=== PATIENT | female | born 1940 | race Caucasian/White ===

== ENCOUNTER 2020-01-11 09:16 | Outpatient (CLI) | payer MEDICARE, OTHER, SELFPAY ==
--- NOTE | ~2020-01-11 | MR_ITS ---
EXAMINATION: MR lumbar spine wo con DATE: 01/11/2020 10:30 INDICATION: Low back pain. TECHNIQUE: Magnetic resonance imaging (MRI) of the lumbar spine was performed without intravenous con trast. Sequences included sagittal T2-weighted FSE, sagittal T2-weighted FS FSE, sagittal T1-weighted FSE, and axial T2-weighted FSE. COMPARISON: Lumbar spine MRI 04/19/2019, CT 01/11/2020 FINDINGS: There is 11 degrees dextroscoliosis of lumbar spine. There is 7 mm anterolisthesis of L5 on S1. There are changes of posterior fusion procedure at L5-S1 with pedicle screws. There is mild auditor in charge estefany anterior wedging of T11-L1 vertebral bodies. There are Schmorl's nodes at multiple levels. There is mildly decreased disc height at L1-L2 and L3-L4 and moderately decreased disc height at L4-L5 and L5-S1. The distal spinal cord signal intensity is normal. The conus medullaris is at L1-L2. There are cysts in the kidneys measuring up to 3.0 cm on the left. The following disc levels are specifically discussed: L1-L2: The disc is bulging. There is mild bilateral facet joint osteoarthritis. There is mild bilater al neural foraminal stenosis. There is mild central canal stenosis. L2-L3: The disc does not extend beyond the endplate margin. There is moderate bilateral facet joint o steoarthritis. There is mild left neural foraminal stenosis. There is no central canal stenosis. L3-L4: The disc is bulging. There is severe bilateral facet joint osteoarthritis. There is mild bilat eral neural foraminal stenosis. There is mild central canal stenosis. L4-L5: The disc is bulging and has an annular fissure. There is severe bilateral facet joint osteoart hritis. There is mild bilateral neural foraminal stenosis. There is mild central canal stenosis. L5-S1: The disc is bulging and has an annular fissure. There is severe bilateral facet joint osteoart hritis. There is mild bilateral neural foraminal stenosis. There is mild central canal stenosis. IMPRESSION: 1. Moderate lumbar spondylosis, stable from 04/19/2019. 2. Posterior fusion procedure at L5-S1. 3. Lumbar dextroscoliosis. Reviewed, dictated and finalized at location A.
--- NOTE | ~2020-01-11 | CT_ITS ---
EXAMINATION: CT lumbar spine wo con DATE: 01/11/2020 09:58 INDICATION: Low back pain. Left leg numbness. TECHNIQUE: Computed tomography (CT) of the lumbar spine was performed without intravenous contrast. A utomated exposure control and iterative reconstruction technique were employed. The dose-length produ ct was 400.33 mGy-cm. 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 There is a 7 mm stone in the lower pole renal pelvis. No hydronephrosis. There is a 3.1 cm cyst in left kidney. There is 12 degrees dextroscoliosi s of lumbar spine. There are chronic bilateral L5 pars defects. There is 7 mm anterolisthesis of L5 o n S1. There are changes of posterior fusion procedure at L5-S1 with pedicle screws. There are Schmorl 's nodes at L1-L2 and L3-L4. There is mildly decreased disc height at L1-L2 and L3-L4 and moderately decreased disc height at L4-L5 and L5-S1. The following disc levels are specifically discussed: L1-L2: The disc is bulging. There is mild bilateral facet joint osteoarthritis. There is mild bilater al neural foraminal stenosis. There is mild central canal stenosis. L2-L3: The disc is bulging. There is moderate bilateral facet joint osteoarthritis. There is mild lef t neural foraminal stenosis. There is no central canal stenosis. L3-L4: The disc is bulging. There is severe bilateral facet joint osteoarthritis. There is mild right and moderate left neural foraminal stenosis. There is mild central canal stenosis. L4-L5: The disc is bulging. There is severe bilateral facet joint osteoarthritis. There is mild bilat eral neural foraminal stenosis. There is mild central canal stenosis. L5-S1: The disc is bulging. There is severe bilateral facet joint osteoarthritis. There is mild bilat eral neural foraminal stenosis. There is mild central canal stenosis. IMPRESSION: 1. Moderate lumbar spondylosis. 2. Posterior fusion procedure at L5-S1. 3. Lumbar dextroscoliosis. 4. Right kidney stone. Reviewed, dictated and finalized at location A.
== END 2020-01-11 09:17 | disposition home or self-care (01) ==
PROVIDERS: PCP Family Medicine; Visit Provider Orthopaedic Surgery
DX: M47.896 Other spondylosis, lumbar region (principal); Z98.1 Arthrodesis status; N20.0 Calculus of kidney
CPT/HCPCS: 72131; 72148

== ENCOUNTER 2021-01-20 15:07 | Outpatient (CLI) | payer MEDICARE, OTHER, SELFPAY ==
--- NOTE | ~2021-01-20 | CT_ITS ---
EXAMINATION: CT hip LT wo con DATE: 01/20/2021 15:26 INDICATION: Left hip pain. TECHNIQUE: Computed tomography (CT) of the left hip was performed without intravenous contrast. Autom ated exposure control and iterative reconstruction technique were employed. The dose-length product w as 199.05 mGy-cm. COMPARISON: Pelvis and left hip radiograph 01/14/2021 FINDINGS: Bone alignment is normal. No fracture. There is severe left hip osteoarthritis. There is a loose body in the posterior aspect of the hip joint. IMPRESSION: 1. Severe left hip osteoarthritis. 2. Left hip joint loose body. Reviewed, dictated and finalized at location A.
== END 2021-01-20 15:08 | disposition home or self-care (01) ==
LOC: ANHIMG 15:08
PROVIDERS: PCP Family Medicine; Visit Provider Orthopaedic Surgery
DX: M24.052 Loose body in left hip (principal); M16.12 Unilateral primary osteoarthritis, left hip
CPT/HCPCS: 73700

== ENCOUNTER 2021-03-03 07:51 | Outpatient (CLI) | payer MEDICARE, OTHER, SELFPAY ==
--- NOTE | 2021-03-03 09:09 | ECG_ITS ---
Measurements Intervals [place] Rate: 67 P: 58 IN: 174 QRS: -1 QRSD: 86 T: 28 QT: 389 QTc: 413 Interpretive Statements SINUS RHYTHM EARLY PRECORDIAL R/S TRANSITION BORDERLINE ST ABNORMALITY- ANTERIOR LEADS BASELINE ARTIFACT- II, III, AVR, AVF BORDERLINE ECG Electronically Signed On 03-03-2021 9:19:37 CDT by Jeovany Moran D.O.
[2021-03-03 09:58] LABS: Urine Cotinine NEGATIVE
[2021-03-03 10:33] LABS: Hemoglobin A1C 5.6 % (<5.7)
== END 2021-03-03 07:52 | disposition home or self-care (01) ==
LOC: ANHSURGERY 07:55
PROVIDERS: PCP Family Medicine; Visit Provider Orthopaedic Surgery
DX: M16.12 Unilateral primary osteoarthritis, left hip (principal); Z01.812 Encounter for preprocedural laboratory examination; R94.31 Abnormal electrocardiogram [ECG] [EKG]
CPT/HCPCS: 80307; 83036; 86850; 86900; 86901; 87081; 93005

== ENCOUNTER 2021-03-16 01:42 | Day surgery (SDC) | payer MEDICARE, OTHER, SELFPAY ==
[2021-03-03 08:03] VITALS: BMI 24.3
[2021-03-03 09:02] VITALS: BP 167/86; PULSE 68; RESP 16; TEMP 36.9; O2SAT 97
[2021-03-16] VITALS (15 sets, daily range): BP systolic 116–164; BP diastolic 56–80; PULSE 47–76; RESP 10–18; TEMP 36.2–36.6; O2SAT 90–100
--- NOTE | ~2021-03-16 | XR_ITS ---
EXAMINATION: XR surgery orthopedic DATE: 03/16/2021 09:54 INDICATION: Intraoperative evaluation during left full hip arthroplasty TECHNIQUE: A single fluoroscopic spot image the left hip was obtained during procedure performed by Gaye Ross. Radiologist was not present for the imaging or procedure. The amount of fluoroscopy time use d during this procedure was 0.2 minutes. FINDINGS: Intraoperative image during a left normal hip arthroplasty demonstrate placement of an acetabular com ponent which appears in near anatomic alignment on the single image provided. A femoral broach versu s femoral component without the head is in place with the proximal tip centered over the acetabular c omponent. Hemostat is seen extending between the proximal thighs external to the patient. No fracture s in the visualized bones. IMPRESSION: 1. Expected appearance during left total hip arthroplasty. Reviewed, dictated and finalized at location A.
--- NOTE | ~2021-03-16 | XR_ITS ---
XR hip LT min 2V DATE: 03/16/2021 10:52 INDICATION: Postoperative examination, left hip replacement TECHNIQUE: Postoperative portable AP and crosstable lateral views of the left hip COMPARISON: 03/05/2021 left hip FINDINGS: A screw is noted in the left side of the sacrum. Status post left femoral head resection and left total hip arthroplasty. Normal alignment of the acet abular and femoral components. There is expected postoperative mild subcutaneous emphysema in the lef t hip and proximal thigh areas. Osteopenia. IMPRESSION: Status post left total hip arthroplasty Reviewed, dictated and finalized at location B.
[2021-03-16] MEDS: ACETAMINOPHEN 500 MG TABLET 1000 MG PO ×3 (06:47→21:19)
[2021-03-16] MEDS: LACTATED RINGERS 1,000 ML 30 ML IV CONT ×3 (07:00→11:36)
[2021-03-16] MEDS: TRANEXAMIC ACID 1,000MG/ISO100 1,000 MG/100 ML BAG 200 MG IVPB (07:01)
--- NOTE | 2021-03-16 07:01 | WPDHPUPDATE1 ---
History and Physical Update Update Date/Time: 03/16/21 07:01 History and Physical has been reviewed, including an updated exam of the patient. There are NO changes in the patient's condition. Risks, benefits, and alternatives have been discussed and questions answered. Patient agrees to proceed with procedure.
--- NOTE | 2021-03-16 07:02 | WPDANESEPPF ---
Anes - Initial Pre Proc Eval Procedure: Operation Date: 03/16/21 07:30 Proposed Procedures p Total Left Hip Arthroplasty, Anterior Approach - Michele Ross MD Date/Time: 03/16/21 07:02 Surgeon: Michele Ross MD Pre Op Diagnosis: Left Hip osteoarthritis Patient Data Age: 81 Gender: F Height: 1.57 m Weight: 60.9 kg Last Vital Signs Temp 36.6 C 03/16/21 06:20 Pulse 66 03/16/21 06:20 Resp 16 03/16/21 06:20 BP 164/71 H 03/16/21 06:20 Pulse Ox 98 03/16/21 06:20 Allergies Allergy/AdvReac Type Severity Reaction Status Date / Time J CARLOS Inhibitors Allergy Mild Cough Verified 03/16/21 06:29 amlodipine Allergy Mild RASH Verified 03/16/21 06:29 lisinopril Allergy Mild RASH Verified 03/16/21 06:29 losartan Allergy Unknown RASH Verified 03/16/21 06:31 CARDIUM Allergy Mild Cough Uncoded 03/16/21 06:32 DIURETICS Allergy Mild LEG CRAMPS Uncoded 03/16/21 06:31 Home Medications Medication Instructions Recorded Confirmed Type hydrocortisone 1 applic TOPICAL PRN PRN 03/03/21 03/16/21 History nebivolol [Bystolic] 2.5 mg PO QAM 03/03/21 03/16/21 History sennosides [Senokot] 8.6 mg PO HS 03/03/21 03/16/21 History triamcinolone acetonide 1 applic TOPICAL PRN PRN 03/03/21 03/16/21 History rivaroxaban 10 mg tablet 10 mg PO DAILY #14 tablet 03/05/21 03/16/21 Rx ECG: Date of Service: 03/03/21 Procedure(s): CA 12 lead EKG Accession Number(s): [id number] cc: ~ Measurements Intervals [place] Rate: 67 P: 58 DE: 174 QRS: -1 QRSD: 86 T: 28 QT: 389 QTc: 413 Interpretive Statements SINUS RHYTHM EARLY PRECORDIAL R/S TRANSITION BORDERLINE ST ABNORMALITY- ANTERIOR LEADS BASELINE ARTIFACT- II, III, AVR, AVF BORDERLINE ECG Electronically Signed On 03-03-2021 9:19:37 CDT by Jeovany Moran D.O. Dictated By: Jeovany Moran DO 03/03/21 0919 Patient hx anesthesia problems: none Family hx anesthesia problems: none PMFSH Past Medical History Medical History Hernia Osteoarthritis of left hip Pain of left hip Surgical History Surgical History H/O repair of rotator cuff H/O: hysterectomy History of appendectomy History of cholecystectomy History of lumbar surgery History of vitrectomy Family History Family History Mother Hypertension Carcinoma of colon Colon polyp Family history of malignant neoplasm of breast in first degree relative Father Family history of Parkinson's disease, Onset Age: 73 Social History Social History Smoking packs per day: 1 Smoking cigarettes per day: 20.0 Years smoked: 50 Smoking pack-years: 50.00 Smoking status: Former smoker Tobacco type: cigarettes and e-cigarettes/vaping Smoking end date: 08/15/12 Additional smoking assessment comments: CURRENTLY USES E-CIGARETTES W NICOTINE.STATES LAST USED E-CIG WAS 6 WKS AGO Alcohol intake: never Living arrangements: with family Gender identity (if verbalized by the patient): Female Spiritual care concerns: No Anes - Eval Final PreProcedure Day of Procedure 03/16/21 07:02 Patient weight: normal Heart: regular rate and rhythm Lungs: clear to auscultation and normal air movement Airway: Mallampati scale class II Neurological: alert and oriented Last oral intake: >/= 8 hours ASA classification: II Emergent: no Anesthetic plan: proceed Anesthesia type and monitoring: general LMA and ETT Informed Consent: The patient's anesthetic plan and its attendant risks and benefits were discussed
[2021-03-16] MEDS: ceFAZolin 2 GM/D5W 50 ML 2 GM/50 ML BAG IVPB ×3 (07:31→23:23)
[2021-03-16] MEDS: BUPIVACAINE/EPINEPHRINE 0.25% 10 ML VIAL 40 ML INFILTRATE (08:28)
--- NOTE | 2021-03-16 10:32 | W.PM.PROC2 ---
Procedure Note - Detailed Date of Procedure 03/16/21 Pre-op Diagnosis Left Hip osteoarthritis Post-op Diagnosis same Procedure Performed left total hip replacement - anterior approach Surgeon Michele Ross MD Automatic Spreader Operator Verónica Matta Anesthesia general Indications see H&P Description of Procedure The patient was identified, proper side identified, and then taken to the operating room. After a spinal anesthetic was administered, she was then transferred over to the Lind table positioning supine in the usual manner for an anterior hip procedure. Positioning was assessed fluoroscopically after which the left hip and thigh was prepped and draped in the usual sterile fashion. 10 cc of the arthroplasty solution was injected into the subcutaneous tissue over the TFL muscle belly. Longitudinal incision was made over the muscle belly. Subcutaneous tissue was sharply dissected down to the TFL fascia which was incised in line with the fibers the TFL. The TFL was retracted laterally and the rectus femoris medially. The rectus fascia was divided. The branches of the anterior femoral circumflex artery were identified and cauterized allowing for access to the hip capsule. Pericapsular fatty tissue was removed. The capsule was divided in an inverted T-fashion. The neck cut was made one fingerbreadth above the level of the lesser trochanter. Head fragment was removed and the acetabulum cleared of debris. Acetabulum was sequentially reamed under fluoroscopic visualization up to 47 mm. A size 48 G7 cup was inserted under fluoroscopic visualization in approximately 40? of abduction and 15? of anteversion following the patient's anatomy. The trial liner for the 32 head was placed. The femur was then delivered up into the wound with the appropriate releases. The proximal femur was prepared for the thirteen high offset Echo micro plasty stem and a trial reduction was undertaken. Overall alignment was assessed fluoroscopically in the AP and lateral views noting it to be satisfactory. Trial components were removed. The wound was irrigated with pulsatile lavage. The real size 13 echo micro plasty stem was then seated. This construct with a size 32 , minus three head gave excellent restorationist of leg lengths and stability so the real size 32, minus three ceramic head was attached to the neck of the femoral component after it had been cleaned and dried. Hip was again reduced and stability assessed, and it was noted to be stable. After final lavage of the wound, the periarticular tissues were injected with an additional 50 cc of the arthroplasty solution. 1 g of tranexamic acid was left in the wound. The capsule was reapproximated with #2 Vicryl suture, the TFL fascia with 0 looped PDS suture, the subcu with two of strata fix in the deeper layers and two of strata fix subcuticular stitch. Tissue adhesive was used for the skin. Sterile dressing was applied. Ad tolerated the procedure well. He was transferred back to a bed and taken to recovery area in stable condition. There were no known intraoperative complications. Estimated blood loss was 500 cc; 225 cc given back via Cell Saver. She received perioperative antibiotics. Estimated Blood Loss 500 ( 225 mL cell Saver returned) Drains No Packing No Pathology none sent Complications No immediate complications Condition stable Disposition PACU
[2021-03-16] MEDS: fentaNYL CITRATE INJ (*CRX) 100 MCG/2 ML VIAL 25 MCG IV PUSH ×2 (10:54→11:33)
--- NOTE | 2021-03-16 12:48 | ADMGEN ---
This patient, Jazmín Avila, was admitted to 2 Medical Room 241-01. Patient/family oriented to hospital policies and general routines including ID bracelet, bed and alarms, visiting hours, pain management, procedures, bathroom and other care routines, personal items, smoking policy, room service/diet, and visiting hours. Information on how to activate the Rapid Response Team has been discussed. Patient/Family are encouraged to report perceived risks to care and to ask questions if they do not understand what they are told or what they should do.
[2021-03-16] MEDS: SODIUM CHLORIDE 0.9% IV 1,000 ML 125 ML IV CONT ×2 (13:11→21:00)
[2021-03-16] MEDS: oxyCODONE HCL (*CRX) 5 MG TAB IR PO ×2 (14:18→21:24)
[2021-03-16] MEDS: ONDANSETRON INJ 4 MG/2 ML VIAL IV PUSH ×2 (16:30→21:19)
[2021-03-16] MEDS: DOCUSATE SODIUM 100 MG CAPSULE PO (18:14)
[2021-03-16] MEDS: FAMOTIDINE 20 MG TABLET PO (21:18)
[2021-03-16] MEDS: SENNOSIDES 8.6 MG TABLET PO (23:26)
[2021-03-17 02:25] VITALS: BP 126/58; PULSE 83; RESP 16; TEMP 36.6; O2SAT 94
[2021-03-17] MEDS: ONDANSETRON INJ 4 MG/2 ML VIAL IV PUSH ×2 (03:49→06:27)
[2021-03-17] MEDS: KETOROLAC 15 MG/ML VIAL (*BKC) IV PUSH (04:58)
[2021-03-17] MEDS: SODIUM CHLORIDE 0.9% IV 1,000 ML 125 ML IV CONT (06:23)
[2021-03-17 06:25] VITALS: BP 110/58; PULSE 78; RESP 16; TEMP 36.8; O2SAT 95
--- NOTE | 2021-03-17 07:38 | PM.DS ---
DS: Admitting Diagnosis Admitting Diagnosis left hip osteoarthritis DS: Discharge Diagnosis Discharge Diagnosis (1) History of left hip replacement: Code(s): Z96.642 - Presence of left artificial hip joint Status: Resolved Assessment and Plan: plan discharge home later today. DS: Summary Hospital Course Reason for hospitalization: Observation following outpatient procedure Hospital Course: Following the patient's procedure she was admitted to the floor. She did have nausea overnight but it is better today. I suspect that this is primarily from residual anesthetic. Plan on discharging her home today. Status at Discharge Functional status at discharge: uses cane/walker Overall status at discharge: patient is not back to baseline Time Spent with Patient Time attestation: Total time spent providing and/or coordinating discharge services: Exam Const: General: cooperative, no acute distress and alert Nutritional Appearance: other Orientation/consciousness: patient oriented x3 Limitations: no limitations HENMT: Head: normal to inspection Ears: hearing grossly normal bilaterally Face and sinus: face symmetric Mouth: Yes moist mucous membranes Eyes: Alignment and Position: alignment normal and position normal Sclera: sclerae normal Neck: Neck: normal visual inspection and nontender Chest: Chest palpation & inspection: normal inspection of the chest Resp: Effort & Inspection: normal respiratory effort and able to speak in complete sentences GI: Inspection: other Skin: General skin exam: normal color Rashes: no rashes Neuro: General: patient oriented x3 Cognition (Neuro): normal cognition Speech: normal speech Gait exam (Neuro): Other gait observations present Extrem: General: normal to inspection and other Other: Exam of The left hip shows dry dressing. Minimal swelling. Neurovascular status grossly intact left lower extremity. Calves negative. Psych: Appearance: grossly normal Mental Status: mental status grossly normal Discharge Plan Discharge Patient Disposition: Home, Self-Care Discharge Instructions: 3 times daily for 20 minutes each time, reclining in bed with ice packs over the incision and a pillow underneath the calf of the affected leg, not under the knee. Your wound is glued so it is okay to get into the shower and get the wound wet in two days. Be sure to read through all the information that came from a my office and the hospital. Most of the answers you will need can be found that material. Call the office with any questions that you cannot find answers to, or concerns you may have. After the Xarelto is completed, start taking one coated 325 mg aspirin daily and do this for four more weeks. Please call [facility] at as soon as possible to verify follow-up appointment to be seen in 2 weeks. Also, call the office with any orthopedic/surgical related questions prior to follow-up. Be sure to get up and move around several times daily but do not overdo it. Take the arthritis formula Tylenol 650 mg tablet on an 8 hour schedule. A good 8 hour schedule is: 6:00 a.m., 2:00 p.m., 10:00 p.m. you may take the prescribed pain medication along with the Tylenol; it is not to be taken instead of the Tylenol. I would like for you to take the Tylenol on a schedule for 2-3 weeks. You also have a prescription for Celebrex which is to be taken daily for seven days. Once the Xarelto is completed, if you wish to supplement your pain regimen with [id number] anti-inflammatory such as Advil or Aleve, that is fine. Follow the label instructions. Do not take this medicine if you have an allergy to NSAIDs. Patient Instructions: Rivaroxaban (By mouth) Discharge Medications: New oxycodone 5 mg Tablet 5 mg PO Q4H PRN (Reason: Pain Rated 4-6) Qty: 30 RF: 0 celecoxib [Celebrex] 200 mg capsule 200 mg PO DAILY Qty: 7 RF: 0 ondansetron HCl [Zofran] 4 mg
--- NOTE | 2021-03-17 07:41 | WPDANESPN ---
Anes - Prog Note Post-Op Date/Time: 03/17/21 07:41 Cardiovascular status: normal Respiratory status: normal Airway patency: baseline Mental status: baseline Post-Op hydration status: normal Vital Signs: Last Vital Signs Temp 36.8 C 03/17/21 06:25 Pulse 78 03/17/21 06:25 Resp 16 03/17/21 06:25 BP 110/58 L 03/17/21 06:25 Pulse Ox 95 03/17/21 06:25 Pain Score (VAS): 3/10 I/O: Intake & Output 03/16/21 03/16/21 03/17/21 15:59 23:59 07:59 Intake Total 550 1640 1200 Output Total 100 900 Balance 550 1540 300 Post-procedural complaints: nausea and vomiting Patient Feedback: Patient satisfied with anesthetic care.
[2021-03-17] MEDS: ceFAZolin 2 GM/D5W 50 ML 2 GM/50 ML BAG IVPB (08:12)
[2021-03-17 08:14] VITALS: PULSE 78
[2021-03-17] MEDS: NEBIVOLOL HCL 2.5 MG TABLET PO (08:14)
[2021-03-17] MEDS: CELECOXIB 200 MG CAPSULE PO (08:14)
[2021-03-17] MEDS: FAMOTIDINE 20 MG TABLET PO (08:15)
[2021-03-17] MEDS: RIVAROXABAN 10 MG TABLET PO (08:15)
[2021-03-17] MEDS: DOCUSATE SODIUM 100 MG CAPSULE PO (08:16)
== END 2021-03-17 10:10 | disposition home or self-care (01) ==
LOC: ANHSURGERY 06:00 → ANH2MED 12:43
PROVIDERS: PCP Family Medicine; Visit Provider Orthopaedic Surgery
PROC: (CPT 27130; principal; 2021-03-16 07:30)
DX: M16.12 Unilateral primary osteoarthritis, left hip (principal); Z87.891 Personal history of nicotine dependence; Z79.01 Long term (current) use of anticoagulants
CPT/HCPCS: 27130; 73502; 97110; 97116; 97161; 97165; 97530; 97535; A9270; C1713; C1776; J0690; J1100; J1170; J1885; J2405; J2704; J3010; J7030; J7120

== ENCOUNTER 2021-03-30 15:47 | Inpatient (IN) | payer MEDICARE, OTHER, SELFPAY ==
[2021-03-30] VITALS (11 sets, daily range): BP systolic 101–127; BP diastolic 52–90; PULSE 71–80; RESP 12–18; TEMP 36.2–37.3; O2SAT 88–100; BMI 24.0
--- NOTE | ~2021-03-30 | XR_ITS ---
XR hip LT min 2V DATE: 03/30/2021 21:41 INDICATION: Left hip replacement TECHNIQUE: Postoperative portable AP and crosstable lateral views of left hip COMPARISON: 03/16/2021 portable AP and crosstable lateral views of left hip FINDINGS: Status post left hip arthroplasty with normal alignment of the acetabular and femoral compo nents. Surgical soft tissue drain overlies the left hip area. Status post posterior lumbosacral spinal fusion. IMPRESSION: Status post left hip replacement Reviewed, dictated and finalized at location A.
--- NOTE | 2021-03-30 15:50 | ADMGEN ---
This patient, Jazmín Avila, was admitted to Medical Room 253-01. Patient/family oriented to hospital policies and general routines including ID bracelet, bed and alarms, visiting hours, pain management, procedures, bathroom and other care routines, personal items, smoking policy, room service/diet, and visiting hours. Information on how to activate the Rapid Response Team has been discussed. Patient/Family are encouraged to report perceived risks to care and to ask questions if they do not understand what they are told or what they should do.
--- NOTE | 2021-03-30 17:55 | WPDANESEPPF ---
Anes - Initial Pre Proc Eval Procedure: Operation Date: 03/30/21 19:00 Proposed Procedures p Washout Left Hip Possible Head and Poly Exchange - Michele Ross MD Date/Time: 03/30/21 17:55 Surgeon: Michele Ross MD Pre Op Diagnosis: Post/op wound infection left hip Patient Data Age: 81 Gender: F Height: 1.57 m Weight: 59.6 kg Last Vital Signs Temp 36.4 C L 03/30/21 16:19 Pulse 80 03/30/21 16:19 Resp 16 03/30/21 16:19 BP 119/88 03/30/21 16:19 Pulse Ox 100 03/30/21 16:19 Allergies Allergy/AdvReac Type Severity Reaction Status Date / Time J CARLOS Inhibitors Allergy Mild Cough Verified 03/16/21 06:29 Home Medications Medication Instructions Recorded Confirmed Type Bystolic 2.5 mg PO QAM 03/03/21 03/30/21 History hydrocortisone 1 applic TOPICAL PRN PRN 03/03/21 03/30/21 History sennosides [Senokot] 8.6 mg PO HS 03/03/21 03/30/21 History triamcinolone acetonide 1 applic TOPICAL PRN PRN 03/03/21 03/30/21 History ondansetron HCl [Zofran] 4 mg PO Q6H PRN #10 tablet 03/17/21 03/30/21 Rx oxycodone 5 mg tablet 5 mg PO Q6H PRN #30 tablet 03/17/21 03/30/21 Rx acetaminophen [Tylenol Arthritis] 650 mg PO Q8H PRN 03/30/21 03/30/21 History aspirin 325 mg PO DAILY 03/30/21 03/30/21 History Patient hx anesthesia problems: post op nausea/vomiting Family hx anesthesia problems: none PMFSH Past Medical History Medical History Essential (primary) hypertension Hernia Pain of left hip Postoperative wound infection Surgical History Surgical History H/O repair of rotator cuff H/O: hysterectomy History of appendectomy History of cholecystectomy History of left hip replacement March 16, 2021 anterior approach History of lumbar surgery History of vitrectomy Family History Family History Mother Hypertension Carcinoma of colon Colon polyp Family history of malignant neoplasm of breast in first degree relative Father Family history of Parkinson's disease, Onset Age: 73 Social History Social History Smoking packs per day: 1 Smoking cigarettes per day: 20.0 Years smoked: 50 Smoking pack-years: 50.00 Smoking status: Former smoker Alcohol intake: never Substance use: never Spiritual care concerns: No Anes - Eval Final PreProcedure Day of Procedure 03/30/21 17:55 Patient weight: normal Heart: regular rate and rhythm Lungs: decreased breath sounds Airway: Mallampati scale class II Neurological: alert and oriented Last oral intake: >/= 8 hours ASA classification: III Emergent: no Anesthetic plan: proceed Anesthesia type and monitoring: general LMA and standard monitoring Informed Consent: The patient's anesthetic plan and its attendant risks and benefits were discussed with the patient/family/POA. Questions were solicited and answers provided to the satisfaction of the patient/family/POA.
[2021-03-30] MEDS: LACTATED RINGERS 1,000 ML 30 ML IV CONT (18:03)
--- NOTE | 2021-03-30 19:31 | WPDHPUPDATE1 ---
History and Physical Update Update Date/Time: 03/30/21 19:31 History and Physical has been reviewed, including an updated exam of the patient. There are NO changes in the patient's condition. Risks, benefits, and alternatives have been discussed and questions answered. Patient agrees to proceed with procedure.
[2021-03-30 19:54] LABS: Hematocrit 33.6 % (37.0-47.0); Hemoglobin 10.2 g/dL (12.0-15.0); Mean Corpuscular HGB Conc 30.4 g/dl (32-36); Mean Corpuscular Hemoglobin 29.8 pg (26-34); Mean Corpuscular Volume 98.2 fl (80-100); Platelet Count Result 326 k/mm3 (150-375); Red Blood Count 3.42 M/mm3 (4.2-5.4); Red Cell Distribution Width 13.2 % (11.5-14.5); White Blood Count 11.5 K/mm3 (4.5-10.0)
[2021-03-30 20:03] LABS: Anion Gap 7 mmol/L (8-16); Blood Urea Nitrogen 14 mg/dL (7-17); Calcium 8.9 mg/dL (8.4-10.2); Carbon Dioxide 27 mmol/L (22-30); Chloride 104 mmol/L (98-107); Estimated CRCL calculation 39 ml/min; Estimated Glomerular Filt Rate > 60; Glucose 108 mg/dL (65-110); Potassium 3.9 mmol/L (3.4-5.0); Sodium 138 mmol/L (137-145)
[2021-03-30] MEDS: ceFAZolin SODIUM 1 GM VIAL 2 GM IV PUSH (20:18)
--- NOTE | 2021-03-30 21:43 | W.PM.PROC2 ---
Procedure Note - Detailed Date of Procedure 03/30/21 Pre-op Diagnosis Post/op wound infection left hip Post-op Diagnosis same ( superficial postop wound infection left hip) Procedure Performed irrigation and debridement left hip superficial wound infection Surgeon Michele Ross MD Inspector Final Assembly Electrical Verónica Mcfarland Anesthesia general Indications see H&P Description of Procedure The patient was identified and proper side identified. She was taken to the operating room and after general anesthetic induction and intubation, transferred to the Hamilton table positioned supine taking care to properly pad her torso and extremities. From the small dehisced portion of the wound stat Gram stain and routine cell count cultures were sent to the lab. Left hip and thigh was prepped and draped in usual sterile fashion. The original scar was used to open up the wound. The Stratafix suture was removed. The subcutaneous 0 looped PDS was also removed. The wound was probed and noted not to communicate with the deeper tissues. The TFL fascia repair was hernandez and sealed over. Devitalized tissue was removed from the subcutaneous space along with gentle irrigation of 3 L. the skin edges were freshened up. The 8th inch drain was left deep in the wound taking care not to entrap it during the closure. The subcutaneous tissue was reapproximated with a looped PDS. Skin reapproximated with 3-0 Monocryl and then interrupted 3-0 nylon sutures. After the washout there is much less erythema surrounding the wound. The drain was connected to the collection device and a sterile dressing was applied. Estimated blood loss 200 mL. She was awakened, extubated, transferred to a bed and taken to recovery in stable condition. There were no known intraoperative complications. She received perioperative antibiotics after the cultures were obtained. Estimated Blood Loss -200.0 Drains Yes ( 8Th inch Hemovac) Packing No Pathology other ( microbiology Gram stain and culture sent) Complications No immediate complications Condition stable Disposition PACU
[2021-03-30 22:19] LABS: Hematocrit 33.5 % (37.0-47.0)
[2021-03-30] MEDS: SODIUM CHLORIDE 0.9% IV 1,000 ML 125 ML IV CONT (22:50)
[2021-03-31] VITALS (9 sets, daily range): BP systolic 100–113; BP diastolic 32–62; PULSE 70–83; RESP 12–21; TEMP 36.1–36.9; O2SAT 96–100
--- NOTE | 2021-03-31 00:29 | PM.IMCN ---
Assessment and Plan Additional Plan Left hip postoperative wound infection: s/p debridment and irrigation 03/31/2021. on vancomycin and ancef. ID has been consulted. cultures to folow HTN: on bystolic at home. will continue same. postoperative anemai: stable counts. continue to monitor. Chronic back pain with hx of back surgery: home medication DVT proph: per primary Full code thank you for the consult. will follow HPI Data of Consult Consult date: 03/31/21 Requesting Physician: Michele Ross MD Primary Care Provider: Eric Fowler MD Consult Narrative Narrative: Jazmín Avila is a 81 year old female who had left hip replacement 2 week sago presents to the office yeserday with drainagef rom left hip for the past few days and was admitted under orthopedics for wash out. she udnerwent irrigation and debridement of left hip superficial wound infection.se is placed on antibotics. cultrures has been sent from the surgeical site. the wound probed was not noted to communicated with depper tissues. hospitalist team consulted for medical management. she currently deneis any issues. no fever, chills. sob, chest pain. pain is controlled. Review of Systems Review of Systems: - CONSTITUTIONAL: Denies weight loss, fever and chills. - HEENT: Denies changes in vision and hearing - RESPIRATORY: Denies SOB and cough. - CV: Denies palpitations and CP. - GI: Denies abdominal pain, nausea, vomiting and diarrhea. - : Denies dysuria and urinary frequency. - MSK: Denies myalgia and reports left hip pain - SKIN: Denies rash and pruritus. - NEUROLOGICAL: Denies headache and syncope. - PSYCHIATRIC: Denies recent changes in mood. Denies anxiety and depression. All systems reviewed & are unremarkable except as noted in HPI and below Constitutional: Constitutional: Reports fatigue and Reports weakness Neurologic: Reports weakness Endocrine: Endocrine: Reports fatigue PMFSH Past Medical History Medical History Essential (primary) hypertension Hernia Pain of left hip Postoperative wound infection Surgical History Surgical History H/O repair of rotator cuff H/O: hysterectomy History of appendectomy History of cholecystectomy History of left hip replacement March 16, 2021 anterior approach History of lumbar surgery History of vitrectomy Family History Family History Mother Hypertension Carcinoma of colon Colon polyp Family history of malignant neoplasm of breast in first degree relative Father Family history of Parkinson's disease, Onset Age: 73 Social History Social History Smoking packs per day: 1 Smoking cigarettes per day: 20.0 Years smoked: 50 Smoking pack-years: 50.00 Smoking status: Former smoker Alcohol intake: never Substance use: never Spiritual care concerns: No Meds Home Medications and Allergies Home Medications Medication Instructions Recorded Confirmed Type Bystolic 2.5 mg PO QAM 03/03/21 03/30/21 History hydrocortisone 1 applic TOPICAL PRN PRN 03/03/21 03/30/21 History sennosides [Senokot] 8.6 mg PO HS 03/03/21 03/30/21 History triamcinolone acetonide 1 applic TOPICAL PRN PRN 03/03/21 03/30/21 History ondansetron HCl [Zofran] 4 mg PO Q6H PRN #10 tablet 03/17/21 03/30/21 Rx oxycodone 5 mg tablet 5 mg PO Q6H PRN #30 tablet 03/17/21 03/30/21 Rx acetaminophen [Tylenol Arthritis] 650 mg PO Q8H PRN 03/30/21 03/30/21 History aspirin 325 mg PO DAILY 03/30/21 03/30/21 History Allergies Allergy/AdvReac Type Severity Reaction Status Date / Time J CARLOS Inhibitors Allergy Mild Cough Verified 03/16/21 06:29 Vital Signs Vital Signs - 24 hr 03/30/21 16:19 03/30/21 17:45 03/30/21 21:26 Temperature 97.5 F L 98.4 F 99.2 F Pulse Rat
[2021-03-31] MEDS: ceFAZolin 2 GM/D5W 50 ML 2 GM/50 ML BAG IVPB ×3 (04:06→21:33)
[2021-03-31 05:44] LABS: Basophils Percent Auto 0.2 % (0.2-1.2); Hematocrit 30.5 % (37.0-47.0); Hemoglobin 9.1 g/dL (12.0-15.0); Immature Granulocyte Absolute 0.05 K/mm3 (0.00-0.031); Immature Granulocyte Percent A 0.6 % (0-0.5); Lymphocytes Absolute Auto 0.73 K/mm3 (0.9-3.2); Lymphocytes Percent Auto 8.8 % (18.3-44.2); Mean Corpuscular HGB Conc 29.8 g/dl (32-36); Mean Corpuscular Hemoglobin 28.9 pg (26-34); Mean Corpuscular Volume 96.8 fl (80-100); Mean Platelet Volume 9.4 fl (7.4-10.4); Monocytes Absolute Auto 0.3 K/mm3 (0.1-0.6); Monocytes Percent Auto 3.2 % (2.6-8.5); Neutrophils Absolute Auto 7.3 K/mm3 (1.3-6.7); Neutrophils Percent Auto 87.2 % (45.5-73.1); Platelet Count Result 346 k/mm3 (150-375); Red Blood Count 3.15 M/mm3 (4.2-5.4); White Blood Count 8.3 K/mm3 (4.5-10.0)
[2021-03-31 06:05] LABS: Anion Gap 6 mmol/L (8-16); Blood Urea Nitrogen 13 mg/dL (7-17); Calcium 8.2 mg/dL (8.4-10.2); Carbon Dioxide 26 mmol/L (22-30); Chloride 103 mmol/L (98-107); Estimated CRCL calculation 50 ml/min; Estimated Glomerular Filt Rate > 60; Glucose 137 mg/dL (65-110); Potassium 4.1 mmol/L (3.4-5.0); Sodium 135 mmol/L (137-145)
[2021-03-31 06:38] LABS: Anisocytosis 2+ (NORMAL); Hypochromasia 1+ (NORMAL); Microcytosis 1+ (NORMAL); Platelet Estimate Adequate (Adequate)
--- NOTE | 2021-03-31 08:25 | P.PNAN_ITS ---
Anes - Prog Note Post-Op Date/Time: 03/31/21 08:25 Cardiovascular status: normal Respiratory status: normal Airway patency: baseline Mental status: baseline Post-Op hydration status: normal Vital Signs: Last Vital Signs Temp 36.2 C L 03/31/21 04:11 Pulse 70 03/31/21 04:11 Resp 21 H 03/31/21 04:11 BP 101/53 L 03/31/21 04:11 Pulse Ox 100 03/31/21 04:11 Pain Score (VAS): 0 I/O: Intake & Output 03/30/21 03/31/21 03/31/21 23:59 07:59 15:59 Intake Total 100 1560 Output Total 250 650 Balance -150 910 Laboratory Tests 03/31/21 05:06 03/31/21 05:06 03/30/21 03/30/21 03/30/21 19:47 19:47 22:02 WBC 11.5 H RBC 3.42 L Hgb 10.2 L 10.0 L Hct 33.6 L 33.5 L MCV 98.2 MCH 29.8 MCHC 30.4 L RDW 13.2 Plt Count 326 MPV 9.0 Immature Gran % (Auto) Neut % (Auto) Lymph % (Auto) [place] % (Auto) Eos % (Auto) Baso % (Auto) Lymph # (Auto) [place] # (Auto) Eos # (Auto) Baso # (Auto) Abs Immat Gran (auto) Absolute Neuts (auto) Absolute Nucleated RBC Nucleated RBC % Platelet Estimate Hypochromasia Anisocytosis Microcytosis Sodium 138 Potassium 3.9 Chloride 104 Carbon Dioxide 27 Anion Gap 7 L BUN 14 Creatinine 0.80 Estim Creat Clear Calc 39 Estimated GFR > 60 Glucose 108 Calcium 8.9 03/31/21 03/31/21 05:06 05:06 WBC 8.3 RBC 3.15 L Hgb 9.1 L Hct 30.5 L MCV 96.8 MCH 28.9 MCHC 29.8 L RDW 13.0 Plt Count 346 MPV 9.4 Immature Gran % (Auto) 0.6 H Neut % (Auto) 87.2 H Lymph % (Auto) 8.8 L [place] % (Auto) 3.2 Eos % (Auto) 0.0 Baso % (Auto) 0.2 Lymph # (Auto) 0.73 L [place] # (Auto) 0.3 Eos # (Auto) 0.0 Baso # (Auto) 0.0 Abs Immat Gran (auto) 0.05 H Absolute Neuts (auto) 7.3 H Absolute Nucleated RBC 0.0 Nucleated RBC % 0.0 Platelet Estimate Adequate Hypochromasia 1+ Anisocytosis 2+ Microcytosis 1+ Sodium 135 L Potassium 4.1 Chloride 103 Carbon Dioxide 26 Anion Gap 6 L BUN 13 Creatinine 0.60 L Estim Creat Clear Calc 50 Estimated GFR > 60 Glucose 137 H Calcium 8.2 L Post-procedural complaints: none Patient Feedback: Patient satisfied with anesthetic care.
--- NOTE | 2021-03-31 09:17 | PM.IMPN ---
Progress Note: A&P Assessment and Plan (1) Postoperative wound infection: Code(s): T81.49XA - Infection following a procedure, other surgical site, initial encounter Status: Acute Assessment and Plan: Several days of hip wound drainage following left total hip replacement on 03/16/21. She is now s/p irrigation debridement of left hip superficial wound infection performed by Dr. Ross on 03/30/2021 Continue with IV vancomycin and cefazolin. Intraoperative cultures obtained. Will await results and tailor antibiotics accordingly Blood cultures obtained today. Appreciate infectious disease recommendations Supportive care. Analgesics available as needed. Planning for swing bed placement. Care coordination following. She remains afebrile, no leukocytosis. (2) History of left hip replacement: Code(s): Z96.642 - Presence of left artificial hip joint Status: Resolved Assessment and Plan: Performed on 03/16/2021. See above. (3) Essential (primary) hypertension: Code(s): I10 - Essential (primary) hypertension Status: Acute Assessment and Plan: Blood pressure reviewed and has been well controlled. Last BP 112/32. Continue nebivolol Monitor BP trends Additional Plan Thank you for allowing me to participate in this patient's care. Will follow along. Please call if any questions arise. Subjective Date/time seen: 03/31/21 09:17 Interval history: Date of service: 03/31/2021 Jazmín Avila is an 81-year-old female with a history of hypertension and osteoarthritis who underwent left hip replacement on 03/16/2021 and subsequently developed postoperative wound infection now s/p irrigation/ debridement on 03/30/[address] Ross. she is feeling very well today. She tolerated the procedure well. She is no longer having any hip pain. She does describe a soreness in the left-sided hip and pelvis that extends down to the mid thigh that she rates as 2/10. She notes already significant improvement in her left leg swelling. She denies nausea or vomiting. No fevers or chills. She was able to tolerate her breakfast this morning. She is passing flatus and feels that she needs to have a bowel movement soon. She is urinating without difficulty and denies any urinary symptoms. Denies shortness breath, cough, chest pain, palpitations, dizziness, or lightheadedness. She has been up and moving with therapy and tolerating well. Review of Systems Review of Systems: All systems reviewed & are unremarkable except as noted in HPI and below Exam Narrative: Ms. Avila is a well-nourished, well-appearing 81-year-old female who is sitting up at the bedside. She appears comfortable and is in NARD. Neuro: awake, alert and oriented x4, speech clear, no focal neuro deficits noted HEENMT: normocephalic, atraumatic, EOMI, sclerae anicteric, moist oral mucosa Neck: supple, no lymphadenopathy Respiratory: clear to auscultation bilaterally, nonlabored breathing Cardio: regular rate, regular rhythm with S1-S2 Abdomen: nondistended, normoactive bowel sounds, soft, nontender to palpation Extremities: left hip slightly tender to palpation, wound vac in place draining meera fluid, left knee and calf with trace edema. Neurovascularly intact. Able to wiggle toes bilaterally. DP pulses 2+ bilaterally Skin: no rashes or lesions, warm and dry Psych: appropriate mood and affect, judgment and insight intact Objective Data Vital Signs Vital Signs: Vital Signs - 24 hr 03/30/21 16:19 03/30/21 17:45 03/30/21 21:26 Temperature 97.5 F L 98.4 F 99.2 F Pulse Rate 80 79 77 Respiratory Rate 16 16 12 Blood Pressure 119/88 122/60 101/90 Pulse Oximetry 100 99 100 03/30/21 21:40 03/30/21 21:50 03/30/21 21:55 Temperature Pulse Rate 76 73 Respiratory Rate 12 16 Blood Pressure 127/59 L 125/63 Pulse Oximetry 100 88 L 98 03/30/21 22:10 03/30/21 22:25 03/30/21 22:26 Temperature 98
[2021-03-31] MEDS: NEBIVOLOL HCL 2.5 MG TABLET PO (09:27)
[2021-03-31] MEDS: DOCUSATE SODIUM 100 MG CAPSULE PO (09:27)
[2021-03-31] MEDS: FAMOTIDINE 20 MG TABLET PO ×2 (09:27→21:32)
--- NOTE | 2021-03-31 12:06 | WPDINFPN2 ---
Progress Note: A&P Assessment and Plan (1) Postoperative wound infection: Code(s): T81.49XA - Infection following a procedure, other surgical site, initial encounter Status: Acute Assessment and Plan: Superficial SSI REC Vanc and Ancef, adjust to single agent once culture available, total antibiotic through 04/13/31 Subjective Date/time seen: 03/31/21 12:06 Objective Data Vital Signs Vital Signs: Vital Signs - 24 hr 03/30/21 16:19 03/30/21 17:45 03/30/21 21:26 Temperature 36.4 C L 36.9 C 37.3 C Pulse Rate 80 79 77 Respiratory Rate 16 16 12 Blood Pressure 119/88 122/60 101/90 Pulse Oximetry 100 99 100 03/30/21 21:40 03/30/21 21:50 03/30/21 21:55 Temperature Pulse Rate 76 73 Respiratory Rate 12 16 Blood Pressure 127/59 L 125/63 Pulse Oximetry 100 88 L 98 03/30/21 22:10 03/30/21 22:25 03/30/21 22:26 Temperature 36.8 C 36.2 C L Pulse Rate 71 71 73 Respiratory Rate 14 16 18 Blood Pressure 123/67 125/67 110/52 L Pulse Oximetry 98 98 96 03/30/21 22:41 03/30/21 23:11 03/31/21 00:11 Temperature 36.4 C 36.2 C L 36.2 C L Pulse Rate 72 73 70 Respiratory Rate 18 18 20 Blood Pressure 105/54 L 110/55 L 113/62 Pulse Oximetry 96 95 98 03/31/21 04:11 03/31/21 09:15 03/31/21 09:27 Temperature 36.2 C L 36.9 C Pulse Rate 70 83 70 Respiratory Rate 21 H 12 Blood Pressure 101/53 L 113/60 Pulse Oximetry 100 96 Intake/Output Intake/Output: Intake & Output 03/28/21 03/29/21 03/30/21 03/31/21 23:59 23:59 23:59 23:59 Intake Total 100 1800 Output Total 250 650 Balance -150 1150 Meds/Results Medications: Active Medications Generic Name Dose Route Start Last Admin Trade Name Freq PRN Reason Stop Dose Admin Acetaminophen 650 mg 03/30/21 22:26 Acetaminophen 325 Mg Tablet PO Q8H PRN Pain Al Hydrox/Mg Hydrox/Simethicone 30 ml 03/30/21 22:26 Mag Hydrox/Al Hydrox/Simeth 30 Ml Udc PO Q6H PRN Indigestion Docusate Sodium 100 mg 03/31/21 09:00 03/31/21 09:27 Docusate Sodium 100 Mg Capsule PO 100 mg BID [facility] Administration Enoxaparin Sodium 40 mg 03/31/21 18:00 Enoxaparin 40 Mg/0.4 Ml Syringe SUB-Q QPM [facility] Famotidine 20 mg 03/31/21 09:00 03/31/21 09:27 Famotidine 20 Mg Tablet PO 20 mg Q12HR [facility] Administration Hydrocortisone 1 applic 03/30/21 22:36 Hydrocortisone 2.5% Cream 30 Gm Tube TOPICAL PRN PRN allergic reaction Hydroxyzine HCl 50 mg 03/30/21 22:26 Hydroxyzine Hcl 25 Mg Tablet PO Q4H PRN Itching Cefazolin Sodium 2 gm in 50 mls @ 100 mls/hr 03/31/21 04:00 03/31/21 04:40 Ancef 2 Gm/D5w 50 Ml IVPB 03/31/21 20:29 Infused Q8H [facility] Infusion Vancomycin HCl 1,000 mg in 250 mls @ 250 mls/hr 03/31/21 23:00 Vancomycin 1,000 Mg/D5w 250 Ml IVPB Q24H [facility] Magnesium Hydroxide 30 ml 03/30/21 22:26 Magnesium Hydroxide Susp 30 Ml Udc PO BID PRN Constipation Naloxone HCl 0.1 mg 03/30/21 22:26 Naloxone Hcl 0.4 Mg/Ml Vial IV PUSH Q2M PRN Opiate Reversal Nebivolol 2.5 mg 03/31/21 09:00 03/31/21 09:27 Nebivolol Hcl 2.5 Mg Tablet PO 2.5 mg QAM [facility] Administration Oxycodone HCl 5 mg 03/30/21 22:26 Oxycodone Hcl (*Crx) 5 Mg Tab Ir PO Q6H PRN Pain Rated 7-10 Senna 8.6 mg 03/31/21 21:00 Sennosides 8.6 Mg Tablet PO HS [facility] Triamcinolone Acetonide 1 applic 03/30/21 22:26 Triamcinolone Acet 0.1% Oint 15 Gm Tube TOPICAL PRN PRN Rash Radiology Results: ITS Impressions Hip X-Ray 03/30/21 21:54 IMPRESSION: Status post left hip replacement Labs Labs: Laboratory Results - last 24 hr 03/30/21 03/30/21 03/30/21 19:47 19:47 22:02 WBC 11.5 H RBC 3.42 L Hgb 10.2 L 10.0 L Hct 33.6 L 33.5 L MCV 98.2 MCH 29.8 MCHC 30.4 L RDW 13.2 Plt Count 326 MPV 9.0 Immature Gran % (Auto) Neut % (Auto) Lymph % (Auto) [place] % (Auto) Eos
--- NOTE | 2021-03-31 13:44 | PM.PNORT ---
Progress Note: A&P Assessment and Plan (1) Postoperative wound infection: Code(s): T81.49XA - Infection following a procedure, other surgical site, initial encounter Status: Acute Assessment and Plan: Awaiting the bacteria identification as well as sensitivities. Appreciate Dr. Oneill's input. Also appreciate hospitalist service assistance. Working on swing bed placement, hopefully ready by the end of the week. (2) History of left hip replacement: Code(s): Z96.642 - Presence of left artificial hip joint Status: Resolved Additional Plan Continue postoperative rehab. Overall doing well. Subjective Subjective Date/Time Seen: 03/31/21 13:44 Post Op day: 1 ( ) Principal diagnosis: Washout left hip superficial wound infection Interval history: 81-year-old female postop day one washout right hip superficial wound infection. She says she is having no pain in her left hip. She also feels like her appetite has improved dramatically overnight and her nausea is gone as well. Review of Systems Constitutional: Constitutional: Reports no additional constitutional complaints Eyes: Eyes: Reports no additional eye complaints ENT: Reports system reviewed and no additional complaints, except as documented Cardiovascular: Cardiovascular: Denies chest pain and Denies lightheadedness Respiratory: Respiratory: Reports no additional respiratory complaints Gastrointestinal: Gastrointestinal: Reports no additional gastrointestinal complaints Musculoskeletal: Musculoskeletal: Reports as per HPI Neurologic: Reports system reviewed and no additional complaints, except as documented Hematologic/Lymphatic: Hematologic/Lymphatic: Reports as per HPI Exam Const: General: cooperative, alert and awake Nutritional Appearance: well nourished ( BMI 24.0) Orientation/consciousness: oriented to person, oriented to place and oriented to time HENMT: Head: normal to inspection Mouth: Yes other ( Wearing a mask.) Teeth and gingiva: fair dentition Neck: Neck: normal visual inspection Chest: Chest palpation & inspection: normal inspection of the chest and No Pacemaker present Resp: Effort & Inspection: normal respiratory effort and able to speak in complete sentences GI: Inspection: normal to inspection Skin: General skin exam: normal color Neuro: General: oriented to person, oriented to place and oriented to time Cognition (Neuro): normal cognition Speech: normal speech Extrem: Other: Left hip wound dressing has no perceivable drainage. Still some surrounding erythema particularly proximally and laterally along the incision. Serous drainage in the drain but no significant accumulation. Neurovascular status left lower extremity grossly intact. Psych: Appearance: grossly normal Mental Status: mental status grossly normal Objective Data Vital Signs Vital Signs: Vital Signs - 24 hr 03/30/21 16:19 03/30/21 17:45 03/30/21 21:26 Temperature 97.5 F L 98.4 F 99.2 F Pulse Rate 80 79 77 Respiratory Rate 16 16 12 Blood Pressure 119/88 122/60 101/90 Pulse Oximetry 100 99 100 03/30/21 21:40 03/30/21 21:50 03/30/21 21:55 Temperature Pulse Rate 76 73 Respiratory Rate 12 16 Blood Pressure 127/59 L 125/63 Pulse Oximetry 100 88 L 98 03/30/21 22:10 03/30/21 22:25 03/30/21 22:26 Temperature 98.3 F 97.1 F L Pulse Rate 71 71 73 Respiratory Rate 14 16 18 Blood Pressure 123/67 125/67 110/52 L Pulse Oximetry 98 98 96 03/30/21 22:41 03/30/21 23:11 03/31/21 00:11 Temperature 97.6 F 97.1 F L 97.2 F L Pulse Rate 72 73 70 Respiratory Rate 18 18 20 Blood Pressure 105/54 L 110/55 L 113/62 Pulse Oximetry 96 95 98 03/31/21 04:11 03/31/21 09:15 03/31/21 09:27 Temperature 97.2 F L 98.4 F Pulse Rate 70 83 70 Respiratory Rate 21 H 12 Blood Pressure 101/53 L 113/60 Pulse Oximetry 100 96 03/31/21 12:32 Temperature 98.3 F Pulse Rate 74 Respiratory Rate Blood Pressure 112/32 L Puls
[2021-03-31] MEDS: ENOXAPARIN 40 MG/0.4 ML SYRINGE SUB-Q (17:19)
[2021-03-31] MEDS: SENNOSIDES 8.6 MG TABLET PO (21:32)
[2021-04-01 04:58] VITALS: BP 125/61; PULSE 80; RESP 18; TEMP 36.4; O2SAT 99
[2021-04-01 06:25] LABS: Hematocrit 29.7 % (37.0-47.0); Hemoglobin 8.7 g/dL (12.0-15.0); Mean Corpuscular HGB Conc 29.3 g/dl (32-36); Mean Corpuscular Hemoglobin 29.4 pg (26-34); Mean Corpuscular Volume 100.3 fl (80-100); Mean Platelet Volume 9.8 fl (7.4-10.4); Platelet Count Result 350 k/mm3 (150-375); Red Blood Count 2.96 M/mm3 (4.2-5.4); Red Cell Distribution Width 13.2 % (11.5-14.5); White Blood Count 6.6 K/mm3 (4.5-10.0)
[2021-04-01 06:37] LABS: Anion Gap 5 mmol/L (8-16); Blood Urea Nitrogen 16 mg/dL (7-17); Calcium 8.2 mg/dL (8.4-10.2); Carbon Dioxide 26 mmol/L (22-30); Chloride 106 mmol/L (98-107); Estimated CRCL calculation 44 ml/min; Estimated Glomerular Filt Rate > 60; Glucose 89 mg/dL (65-110); Potassium 3.6 mmol/L (3.4-5.0); Sodium 137 mmol/L (137-145)
--- NOTE | 2021-04-01 09:09 | PM.PNORT ---
Progress Note: A&P Assessment and Plan (1) Postoperative wound infection: Code(s): T81.49XA - Infection following a procedure, other surgical site, initial encounter Status: Acute (2) History of left hip replacement: Code(s): Z96.642 - Presence of left artificial hip joint Status: Resolved Assessment and Plan: 81-year-old female postop day two washout left hip wound superficial infection. Initial culture results have come back Staph aureus. Waiting for the final ID and sensitivities. Also awaiting final discharge plans with her she is going to be able to get her antibiotics at home with home health or have to go to a swing bed or something in between. Likely be able to put a Mepilex dressing on the wound on Tuesday and then change it and five days. This will allow her to be able to get into the shower. Going to discontinue her Lovenox after tonight so that when she leaves the hospital on Tuesday she can have her dental extraction. Plan will be to go on Xarelto 10 mg daily for two weeks after that followed by four weeks of aspirin. She is really wanting to go home however I did explain to her that we need to do what is in her best interest to eradicate this. The risk for recurrent infection of not only the hip area or even a deep infection at the implant but also hematogenous seeding of her back hardware. She did have postoperative wound infection with that procedure. Subjective Subjective Date/Time Seen: 04/01/21 09:09 Post Op day: 2 Principal diagnosis: Status post washout left hip superficial wound infection Interval history: This document created with [id number] technology and is subject to nursing project coordinator irregularities. 81-year-old female postop day two left hip washout for superficial wound infection. Doing better. Having virtually no discomfort in her hip at this point. Initial culture results are Staph aureus. Sensitivities pending. Review of Systems Constitutional: Constitutional: Denies chills Eyes: Eyes: Reports no additional eye complaints ENT: Reports system reviewed and no additional complaints, except as documented Cardiovascular: Cardiovascular: Denies chest pain Respiratory: Respiratory: Reports no additional respiratory complaints Gastrointestinal: Gastrointestinal: Denies abdominal pain Exam Const: General: cooperative, no acute distress and alert Nutritional Appearance: other Orientation/consciousness: patient oriented x3 Limitations: no limitations HENMT: Head: normal to inspection Ears: hearing grossly normal bilaterally Face and sinus: face symmetric Mouth: Yes moist mucous membranes Teeth and gingiva: fair dentition Eyes: Alignment and Position: alignment normal and position normal Sclera: sclerae normal Neck: Neck: normal visual inspection and nontender Chest: Chest palpation & inspection: normal inspection of the chest Resp: Effort & Inspection: normal respiratory effort and able to speak in complete sentences GI: Inspection: other ( Nondistended, nontender) Skin: General skin exam: normal color Rashes: no rashes Neuro: General: patient oriented x3 Cognition (Neuro): normal cognition Speech: normal speech Gait exam (Neuro): Other gait observations present ( uses walker well) Extrem: General: normal to inspection and other Other: Exam of her left hip wound shows that the erythema is virtually gone. Wound edges well apposed and dry. Minimal serous drainage coming from the drain which was removed without difficulty. Neurovascular status grossly intact left lower extremity. Left hip movement causes no discomfort. Psych: Appearance: grossly normal Mental Status: mental status grossly normal Objective Data Vital Signs Vital Signs: Vital Signs - 24 hr 03/31/21 09:15 03/31/21 09:27 03/31/21 12:32 Temperature 98.4 F 98.3 F Pulse Rate 83 70 74 Respiratory Rate 12 12 Blood Pressure 113/60 112/32 L Pulse Oximetry 96 98 03/31/21
[2021-04-01 09:16] VITALS: PULSE 80
[2021-04-01] MEDS: NEBIVOLOL HCL 2.5 MG TABLET PO (09:16)
[2021-04-01] MEDS: FAMOTIDINE 20 MG TABLET PO ×2 (09:16→19:58)
--- NOTE | 2021-04-01 13:16 | PM.IMPN ---
Progress Note: A&P Assessment and Plan (1) Postoperative wound infection: Code(s): T81.49XA - Infection following a procedure, other surgical site, initial encounter Status: Acute Assessment and Plan: Presented with several days of hip wound drainage following left total hip replacement on 03/16/21. She is now s/p irrigation and debridement of left hip superficial wound infection performed by Dr. Ross on 03/30/2021 Continue with IV vancomycin Intraoperative cultures obtained. Initial report with heavy growth of Staphylococcus aureus. Susceptibility report pending. Cefazolin discontinued today Blood cultures pending. Preliminary results with no growth to date Appreciate infectious disease consultation Supportive care. Analgesics available as needed. Planning for swing bed placement with hopeful discharge on 04/03. Care coordination following. She remains afebrile, no leukocytosis. PICC line ordered today (2) History of left hip replacement: Code(s): Z96.642 - Presence of left artificial hip joint Status: Resolved Assessment and Plan: Performed on 03/16/2021. See above. (3) Essential (primary) hypertension: Code(s): I10 - Essential (primary) hypertension Status: Acute Assessment and Plan: Blood pressure reviewed and has been well controlled. Last BP 125/61. Continue nebivolol Monitor BP trends Subjective Date/time seen: 04/01/21 13:16 Interval history: Date of service: 04/01/2021 Jazmín Avila is an 81-year-old female with a history of hypertension and osteoarthritis who underwent left hip replacement on 03/16/2021 and subsequently developed postoperative wound infection now s/p irrigation/ debridement on 03/30/[address] Ross. she is doing well today. She is very comfortable and has minimal discomfort of left hip. Reports that thigh is a little bit sore otherwise is doing very well. She is able to get up and ambulate with a walker without difficulty. Denies dizziness or lightheadedness with standing or activity. Denies fevers or chills. No nausea, vomiting, abdominal pain, shortness breath, cough, or chest pain. Still has not had a bowel movement postoperatively but is passing gas today and feels that she needs to go soon. Denies urinary symptoms. She has been eating and drinking well. Review of Systems Review of Systems: All systems reviewed & are unremarkable except as noted in HPI and below Exam Narrative: Ms. Avila is a well-nourished, well-appearing 81-year-old female who is sitting up at the bedside. She appears comfortable and is in NARD. Neuro: awake, alert and oriented x4, speech clear, no focal neuro deficits noted HEENMT: normocephalic, atraumatic, EOMI, sclerae anicteric, moist oral mucosa Neck: supple, no lymphadenopathy Respiratory: clear to auscultation bilaterally, nonlabored breathing Cardio: regular rate, regular rhythm with S1-S2 Abdomen: nondistended, normoactive bowel sounds, soft, nontender to palpation Extremities: left lateral thigh minimally tender to palpation, hip nontender, left calf with trace edema. Neurovascularly intact. Able to wiggle toes bilaterally. DP pulses 2+ bilaterally. Right lower extremity no edema, erythema, tenderness to palpation. Skin: no rashes or lesions, warm and dry Psych: appropriate mood and affect, judgment and insight intact Objective Data Vital Signs Vital Signs: Vital Signs - 24 hr 03/31/21 16:33 03/31/21 20:00 03/31/21 20:14 Temperature 96.9 F L 97.6 F Pulse Rate 73 72 72 Respiratory Rate 16 17 17 Blood Pressure 106/54 L 105/60 Pulse Oximetry 98 98 98 03/31/21 23:48 04/01/21 04:58 04/01/21 09:16 Temperature 97.2 F L 97.6 F Pulse Rate 76 80 80 Respiratory Rate 16 18 Blood Pressure 100/50 L 125/61 Pulse Oximetry 97 99 Intake/Output Intake/Output: Intake & Output 03/29/21 03/30/21 03/31/21 04/01/21 23:59 23:59 23:59 23:59 Intake [place]
[2021-04-01 14:00] VITALS: BP 128/60; PULSE 89; RESP 18; TEMP 36.4; O2SAT 98
[2021-04-01] MEDS: ENOXAPARIN 40 MG/0.4 ML SYRINGE SUB-Q (17:49)
[2021-04-01] MEDS: SENNOSIDES 8.6 MG TABLET PO (19:58)
[2021-04-01 20:00] VITALS: PULSE 72; RESP 20; O2SAT 99
[2021-04-01 22:00] VITALS: BP 103/48; PULSE 72; RESP 20; TEMP 36.2; O2SAT 99
[2021-04-02] VITALS (13 sets, daily range): BP systolic 101–145; BP diastolic 49–69; PULSE 69–86; RESP 12–21; TEMP 36.1–37.7; O2SAT 94–100
[2021-04-02 06:06] LABS: Hematocrit 29.9 % (37.0-47.0); Mean Corpuscular HGB Conc 30.1 g/dl (32-36); Mean Corpuscular Hemoglobin 29.9 pg (26-34); Mean Corpuscular Volume 99.3 fl (80-100); Mean Platelet Volume 9.1 fl (7.4-10.4); Platelet Count Result 343 k/mm3 (150-375); Red Blood Count 3.01 M/mm3 (4.2-5.4); Red Cell Distribution Width 13.2 % (11.5-14.5); White Blood Count 5.3 K/mm3 (4.5-10.0)
[2021-04-02 06:34] LABS: Anion Gap 4 mmol/L (8-16); Blood Urea Nitrogen 14 mg/dL (7-17); Calcium 8.4 mg/dL (8.4-10.2); Carbon Dioxide 27 mmol/L (22-30); Chloride 109 mmol/L (98-107); Estimated CRCL calculation 44 ml/min; Estimated Glomerular Filt Rate > 60; Glucose 94 mg/dL (65-110); Potassium 3.5 mmol/L (3.4-5.0); Sodium 140 mmol/L (137-145)
--- NOTE | 2021-04-02 08:38 | PM.PNORT ---
Progress Note: A&P Assessment and Plan (1) Postoperative wound infection: Code(s): T81.49XA - Infection following a procedure, other surgical site, initial encounter Status: Acute Assessment and Plan: Plan to return to the operating room today to wash out the wound again. Discussed fully with the patient. This is going to delay her departure and she understands this. Subjective Subjective Date/Time Seen: 04/02/21 08:38 Post Op day: 3 Principal diagnosis: Status post washout left hip wound Interval history: 81-year-old female who is postop day three washout left hip wound. Apparently her Ancef prescription had [place] it and she has not gotten any since Tuesday evening. She did get vancomycin however. Still waiting on the sensitivities for the Staph aureus. Exam Const: General: cooperative, comfortable and no acute distress Nutritional Appearance: well nourished Extrem: Other: Erythema about the wound just about resolved however there is some purulent drainage coming from the proximal third the wound. Hip movement does not cause her any discomfort. Objective Data Vital Signs Vital Signs: Vital Signs - 24 hr 04/01/21 09:16 04/01/21 14:00 04/01/21 20:00 Temperature 97.6 F Pulse Rate 80 89 72 Respiratory Rate 18 20 Blood Pressure 128/60 Pulse Oximetry 98 99 04/01/21 22:00 04/02/21 02:00 04/02/21 06:00 Temperature 97.1 F L 97.4 F L 97.0 F L Pulse Rate 72 78 73 Respiratory Rate 20 20 21 H Blood Pressure 103/48 L 101/49 L 127/69 Pulse Oximetry 99 98 100 Intake/Output Intake/Output: Intake & Output 03/30/21 03/31/21 04/01/21 04/02/21 23:59 23:59 23:59 23:59 Intake Total 100 / 100 2330 / 2330 1620 / 1620 650 / 650 Output Total 250 / 250 650 / 650 1250 / 1250 900 / 900 Balance -150 / -150 1680 / 1680 370 / 370 -250 / -250 Meds/Results Medications: Active Medications Generic Name Dose Route Start Last Admin Trade Name Freq PRN Reason Stop Dose Admin Acetaminophen 650 mg 03/30/21 22:26 Acetaminophen 325 Mg Tablet PO Q8H PRN Pain Al Hydrox/Mg Hydrox/Simethicone 30 ml 03/30/21 22:26 Mag Hydrox/Al Hydrox/Simeth 30 Ml Udc PO Q6H PRN Indigestion Famotidine 20 mg 03/31/21 09:00 04/01/21 19:58 Famotidine 20 Mg Tablet PO 20 mg Q12HR PATRICIO Administration Hydrocortisone 1 applic 03/30/21 22:36 Hydrocortisone 2.5% Cream 30 Gm Tube TOPICAL PRN PRN allergic reaction Hydroxyzine HCl 50 mg 03/30/21 22:26 Hydroxyzine Hcl 25 Mg Tablet PO Q4H PRN Itching Vancomycin HCl 1,000 mg in 250 mls @ 250 mls/hr 03/31/21 23:00 04/01/21 23:13 Vancomycin 1,000 Mg/D5w 250 Ml IVPB 250 mls/hr Q24H PATRICIO Administration Cefazolin Sodium 2 gm in 50 mls @ 100 mls/hr 04/02/21 09:00 Ancef 2 Gm/D5w 50 Ml IVPB Q8H PATRICIO Magnesium Hydroxide 30 ml 03/30/21 22:26 Magnesium Hydroxide Susp 30 Ml Udc PO BID PRN Constipation Naloxone HCl 0.1 mg 03/30/21 22:26 Naloxone Hcl 0.4 Mg/Ml Vial IV PUSH Q2M PRN Opiate Reversal Nebivolol 2.5 mg 03/31/21 09:00 04/01/21 09:16 Nebivolol Hcl 2.5 Mg Tablet PO 2.5 mg QAM PATRICIO Administration Oxycodone HCl 5 mg 03/30/21 22:26 Oxycodone Hcl (*Crx) 5 Mg Tab Ir PO Q6H PRN Pain Rated 7-10 Senna 8.6 mg 03/31/21 21:00 04/01/21 19:58 Sennosides 8.6 Mg Tablet PO 8.6 mg HS PATRICIO Administration Triamcinolone Acetonide 1 applic 03/30/21 22:26 Triamcinolone Acet 0.1% Oint 15 Gm Tube TOPICAL PRN PRN Rash Radiology Results: ITS Impressions Hip X-Ray 03/30/21 21:54 IMPRESSION: Status post left hip replacement Labs Labs: Laboratory Results - last 24 hr 04/02/21 04/02/21 05:48 05:48 WBC 5.3 RBC 3.01 L Hgb 9.0 L Hct 29.9 L MCV 99.3 MCH 29.9 MCHC 30.1 L RDW 13.2 Plt Count 343 MPV 9.1 Sodium 140 Potassium 3.5 Chloride 109 H Carbon Dioxide 27 Anion Gap
[2021-04-02] MEDS: ceFAZolin 2 GM/D5W 50 ML 2 GM/50 ML BAG IVPB ×2 (09:01→18:54)
[2021-04-02] MEDS: FAMOTIDINE 20 MG TABLET PO ×2 (09:01→22:14)
[2021-04-02] MEDS: NEBIVOLOL HCL 2.5 MG TABLET PO (09:01)
[2021-04-02] MEDS: SODIUM CHLORIDE 0.9% IV 1,000 ML 100 ML IV CONT (09:54)
--- NOTE | 2021-04-02 12:44 | PM.IMPN ---
Progress Note: A&P Assessment and Plan (1) Postoperative wound infection: Code(s): T81.49XA - Infection following a procedure, other surgical site, initial encounter Status: Acute Assessment and Plan: Presented with several days of hip wound drainage following left total hip replacement on 03/16/21. She is now s/p irrigation and debridement of left hip superficial wound infection performed by Dr. Ross on 03/30/2021 IV Ancef resumed this AM. Vancomycin discontinued with last dose 04/01 at 2300. Intraoperative cultures with heavy growth of Staphylococcus aureus, sensitive to cefazolin. Blood cultures pending. Preliminary results with no growth to date Appreciate infectious disease consultation Supportive care. Analgesics available as needed. She remains afebrile, no leukocytosis. Purulence noted from wound today. Planning for washout in the OR this afternoon. Further management dependent on findings in OR. Case has been discussed with Dr. Ross. (2) History of left hip replacement: Code(s): Z96.642 - Presence of left artificial hip joint Status: Resolved Assessment and Plan: Performed on 03/16/2021. Orthopedic surgery managing. Please see above. (3) Essential (primary) hypertension: Code(s): I10 - Essential (primary) hypertension Status: Acute Assessment and Plan: Blood pressure reviewed and has been well controlled. Last BP 127/69. Continue nebivolol Monitor BP trends Subjective Date/time seen: 04/02/21 12:44 Interval history: Date of service: 04/02/2021 Jazmín Avila is an 81-year-old female with a history of hypertension and osteoarthritis who underwent left hip replacement on 03/16/2021 and subsequently developed postoperative wound infection now s/p irrigation/ debridement on 03/30/[address] Ross. she is feeling well today. Continues to complain of soreness, mostly around the left thigh. She was noted to have pus from the wound today and will be undergoing a washout in the OR this afternoon. She has no other concerns at this time. Denies nausea, vomiting, fever, chills, shortness breath, cough, or chest pain. She is currently NPO for her procedure today. She had a small bowel movement this morning. Denies any urinary symptoms. Review of Systems Review of Systems: All systems reviewed & are unremarkable except as noted in HPI and below Exam Narrative: Ms. Avila is a well-nourished, well-appearing 81-year-old female who is sitting in a chair at the bedside. She appears comfortable and is in NARD. Neuro: awake, alert and oriented x4, speech clear, no focal neuro deficits noted HEENMT: normocephalic, atraumatic, EOMI, sclerae anicteric, moist oral mucosa Neck: supple, no lymphadenopathy Respiratory: clear to auscultation bilaterally, nonlabored breathing Cardio: regular rate, regular rhythm with S1-S2 Abdomen: nondistended, normoactive bowel sounds, soft, nontender to palpation Extremities: left lateral thigh minimally tender to palpation, hip nontender, left calf with trace edema. Neurovascularly intact. Able to wiggle toes bilaterally. DP pulses 2+ bilaterally. Right lower extremity no edema, erythema, tenderness to palpation. Skin: Left hip covered in bandage that is c/d/i. No rashes or lesions, warm and dry Psych: appropriate mood and affect, judgment and insight intact Objective Data Vital Signs Vital Signs: Vital Signs - 24 hr 04/01/21 14:00 04/01/21 20:00 04/01/21 22:00 Temperature 97.6 F 97.1 F L Pulse Rate 89 72 72 Respiratory Rate 18 20 20 Blood Pressure 128/60 103/48 L Pulse Oximetry 98 99 99 04/02/21 02:00 04/02/21 06:00 04/02/21 09:01 Temperature 97.4 F L 97.0 F L Pulse Rate 78 73 86 Respiratory Rate 20 21 H Blood Pressure 101/49 L 127/69 Pulse Oximetry 98 100 Intake/Output Intake/Output: Intake & Output 03/30/21 03/31/21 04/01/21 04/02/21 23:59 23:59 23:59 23:59 Intake Total
[2021-04-02] MEDS: LACTATED RINGERS 1,000 ML 30 ML IV CONT (13:05)
--- NOTE | 2021-04-02 13:58 | WPDANESEPPF ---
Anes - Initial Pre Proc Eval Procedure: Operation Date: 03/30/21 19:00 Proposed Procedures p Washout Left Hip Possible Head and Poly Exchange - Michele Ross MD Operation Date: 04/02/21 15:00 Proposed Procedures p Washout Left Hip,Possible Head And Poly Exchange - Michele Ross MD Date/Time: 04/02/21 13:58 Surgeon: Michele Ross MD Pre Op Diagnosis: Post/op wound infection left hip Patient Data Age: 81 Gender: F Height: 1.57 m Weight: 59.6 kg Last Vital Signs Temp 36.1 C L 04/02/21 06:00 Pulse 86 04/02/21 09:01 Resp 21 H 04/02/21 06:00 BP 127/69 04/02/21 06:00 Pulse Ox 100 04/02/21 06:00 Allergies Allergy/AdvReac Type Severity Reaction Status Date / Time J CARLOS Inhibitors Allergy Mild Cough Verified 03/16/21 06:29 Home Medications Medication Instructions Recorded Confirmed Type Bystolic 2.5 mg PO QAM 03/03/21 03/30/21 History hydrocortisone 1 applic TOPICAL PRN PRN 03/03/21 03/30/21 History sennosides [Senokot] 8.6 mg PO HS 03/03/21 03/30/21 History triamcinolone acetonide 1 applic TOPICAL PRN PRN 03/03/21 03/30/21 History ondansetron HCl [Zofran] 4 mg PO Q6H PRN #10 tablet 03/17/21 03/30/21 Rx oxycodone 5 mg tablet 5 mg PO Q6H PRN #30 tablet 03/17/21 03/30/21 Rx acetaminophen [Tylenol Arthritis] 650 mg PO Q8H PRN 03/30/21 03/30/21 History aspirin 325 mg PO DAILY 03/30/21 03/30/21 History Laboratory Tests 04/02/21 04/02/21 05:48 05:48 WBC 5.3 K/mm3 K/mm3 (4.5-10.0) RBC 3.01 M/mm3 L M/mm3 (4.2-5.4) Hgb 9.0 g/dL L g/dL (12.0-15.0) Hct 29.9 % L % (37.0-47.0) MCV 99.3 fl fl (80-100) MCH 29.9 pg pg (26-34) MCHC 30.1 g/dl L g/dl (32-36) RDW 13.2 % % (11.5-14.5) Plt Count 343 k/mm3 k/mm3 (150-375) MPV 9.1 fl fl (7.4-10.4) Sodium 140 mmol/L mmol/L (137-145) Potassium 3.5 mmol/L mmol/L (3.4-5.0) Chloride 109 mmol/L H mmol/L (98-107) Carbon Dioxide 27 mmol/L mmol/L (22-30) Anion Gap 4 mmol/L L mmol/L (8-16) BUN 14 mg/dL mg/dL (7-17) Creatinine 0.70 mg/dL mg/dL (0.7-1.0) Estim Creat Clear Calc 44 ml/min ml/min Estimated GFR > 60 (59 - ) Glucose 94 mg/dL mg/dL (65-110) Calcium 8.4 mg/dL mg/dL (8.4-10.2) Patient hx anesthesia problems: post op nausea/vomiting Family hx anesthesia problems: none PMFSH Past Medical History Medical History Essential (primary) hypertension Hernia Pain of left hip Postoperative wound infection Surgical History Surgical History H/O repair of rotator cuff H/O: hysterectomy History of appendectomy History of cholecystectomy History of left hip replacement March 16, 2021 anterior approach History of lumbar surgery History of vitrectomy Family History Family History Mother Hypertension Carcinoma of colon Colon polyp Family history of malignant neoplasm of breast in first degree relative Father Family history of Parkinson's disease, Onset Age: 73 Social History Social History Smoking packs per day: 1 Smoking cigarettes per day: 20.0 Years smoked: 50 Smoking pack-years: 50.00 Smoking status: Former smoker Alcohol intake: never Substance use: never Spiritual care concerns: No Anes - Eval Final PreProcedure Day of Procedure 04/02/21 13:58 Patient weight: normal Heart: regular rate and rhythm Lungs: clear to auscultation and normal air movement Airway: Mallampati scale class II Neurological: alert and oriented Last oral intake: >/= 8 hours ASA classification: III Emergent: no Anesthetic plan: proceed Anesthesia type and monitoring: general LMA Informed Consent: The patient's anesthetic plan
--- NOTE | 2021-04-02 14:39 | WPDHPUPDATE1 ---
History and Physical Update Update Date/Time: 04/02/21 14:39 History and Physical has been reviewed, including an updated exam of the patient. There are NO changes in the patient's condition. Risks, benefits, and alternatives have been discussed and questions answered. Patient agrees to proceed with procedure.
--- NOTE | 2021-04-02 14:45 | WPDHPUPDATE1 ---
History and Physical Update Update Date/Time: 04/02/21 14:45 History and Physical has been reviewed, including an updated exam of the patient. There are NO changes in the patient's condition. Risks, benefits, and alternatives have been discussed and questions answered. Patient agrees to proceed with procedure.
[2021-04-02] MEDS: ceFAZolin SODIUM 1 GM VIAL 2 GM IV PUSH (15:28)
--- NOTE | 2021-04-02 17:05 | P.OP_ITS ---
Procedure Note - Detailed Date of Procedure 04/02/21 Pre-op Diagnosis Post/op wound infection left hip Post-op Diagnosis same Procedure Performed Washout and closure over drain left hip superficial wound infection Surgeon Michele Ross MD Supervisor Grinding Verónica Mcfarland Anesthesia general Description of Procedure The patient was identified and proper site identified. She was taken to the operating room and after general anesthetic induction intubation, was transferred over to the [place] table positioned supine taking care to properly pad her torso and extremities. The left hip and thigh was prepped and draped in usual sterile fashion. Sutures were removed and the wound reopened. There was a purulence film overlying the TFL fascia. The wound bed had otherwise healthy amount of granulation tissue within it. Any nonviable tissue was debrided. The wound was irrigated with 3 L of sterile saline on a low setting and then washed for 3 minutes with Betadine. The Betadine was rinsed out and then an 18 gauge spinal needle attached to a 3 cc syringe was passed through the TFL into the hip joint space allowing for aspiration of fluid. Very little slightly meera but clear serous fluid was removed. There is no signs of any purulence in this. The wound was irrigated with some the other 3 L of saline with pulsatile lavage. 8th inch Hemovac drain was left at the depths of the wound overlying the fascia taking care not to entrap during the closure. The deeper layers of the subcu reapproximated with 0 looped PDS suture, the skin reapproximated with 2-0 Stratafix and then 3-0 nylon interrupted sutures. The drain was connected to the collection device and then a sterile dressing applied. She tolerated the procedure well. She was transferred back to the bed, awakened and extubated and then taken to recovery area in stable condition. There were no known intraoperative complications. Estimated blood loss 50 mL. Estimated Blood Loss 50 Urine Output 900 Drains Yes (1/8 inch Hemovac) Packing No Pathology none sent Complications No immediate complications Condition stable Disposition PACU
[2021-04-02] MEDS: SENNOSIDES 8.6 MG TABLET PO (22:14)
[2021-04-03] VITALS (8 sets, daily range): BP systolic 102–122; BP diastolic 44–75; PULSE 69–78; RESP 18–20; TEMP 35.8–36.5; O2SAT 96–100
[2021-04-03] MEDS: ceFAZolin 2 GM/D5W 50 ML 2 GM/50 ML BAG IVPB ×3 (04:04→18:50)
[2021-04-03 05:55] LABS: Basophils Absolute Auto 0.1 K/mm3 (0.0-0.1); Basophils Percent Auto 0.8 % (0.2-1.2); Eosinophils Percent Auto 0.3 % (0-4.4); Hematocrit 30.3 % (37.0-47.0); Hemoglobin 9.2 g/dL (12.0-15.0); Immature Granulocyte Absolute 0.05 K/mm3 (0.00-0.031); Immature Granulocyte Percent A 0.8 % (0-0.5); Lymphocytes Absolute Auto 1.83 K/mm3 (0.9-3.2); Lymphocytes Percent Auto 28.2 % (18.3-44.2); Mean Corpuscular HGB Conc 30.4 g/dl (32-36); Mean Corpuscular Hemoglobin 29.5 pg (26-34); Mean Corpuscular Volume 97.1 fl (80-100); Mean Platelet Volume 8.9 fl (7.4-10.4); Monocytes Absolute Auto 0.4 K/mm3 (0.1-0.6); Monocytes Percent Auto 6.3 % (2.6-8.5); Neutrophils Absolute Auto 4.1 K/mm3 (1.3-6.7); Neutrophils Percent Auto 63.6 % (45.5-73.1); Platelet Count Result 361 k/mm3 (150-375); Red Blood Count 3.12 M/mm3 (4.2-5.4); Red Cell Distribution Width 13.2 % (11.5-14.5); White Blood Count 6.5 K/mm3 (4.5-10.0)
--- NOTE | 2021-04-03 07:12 | WPDANESPN ---
Anes - Prog Note Post-Op Date/Time: 04/03/21 07:12 Cardiovascular status: normal Respiratory status: normal Airway patency: baseline Mental status: baseline Post-Op hydration status: normal Vital Signs: Last Vital Signs Temp 36.0 C L 04/03/21 02:00 Pulse 73 04/03/21 02:00 Resp 20 04/03/21 02:00 BP 117/44 L 04/03/21 02:00 Pulse Ox 98 04/03/21 02:00 Pain Score (VAS): 0 I/O: Intake & Output 04/02/21 04/02/21 04/03/21 15:59 23:59 07:59 Intake Total 937 692 6026 Output Total 1200 Balance 410 -1050 1050 Laboratory Tests 04/03/21 05:46 04/03/21 04/03/21 05:46 05:46 WBC 6.5 RBC 3.12 L Hgb 9.2 L Hct 30.3 L MCV 97.1 MCH 29.5 MCHC 30.4 L RDW 13.2 Plt Count 361 MPV 8.9 Immature Gran % (Auto) 0.8 H Neut % (Auto) 63.6 Lymph % (Auto) 28.2 [place] % (Auto) 6.3 Eos % (Auto) 0.3 Baso % (Auto) 0.8 Lymph # (Auto) 1.83 [place] # (Auto) 0.4 Eos # (Auto) 0.0 Baso # (Auto) 0.1 Abs Immat Gran (auto) 0.05 H Absolute Neuts (auto) 4.1 Absolute Nucleated RBC 0.0 Nucleated RBC % 0.0 Sodium Pending Potassium Pending Chloride Pending Carbon Dioxide Pending Anion Gap Pending BUN Pending Creatinine Pending Estim Creat Clear Calc Pending Estimated GFR Pending Glucose Pending Calcium Pending Microbiology 03/30/21 20:09 Hip Left Anaerobic Culture - Preliminary 03/30/21 20:09 Hip Left Aerobic Culture - Final Staphylococcus aureus Post-procedural complaints: none Patient Feedback: Patient satisfied with anesthetic care.
[2021-04-03 07:43] LABS: Potassium 3.8 mmol/L (3.4-5.0); Sodium 140 mmol/L (137-145)
[2021-04-03 07:44] LABS: Anion Gap 5 mmol/L (8-16); Blood Urea Nitrogen 9 mg/dL (7-17); Calcium 8.8 mg/dL (8.4-10.2); Carbon Dioxide 25 mmol/L (22-30); Chloride 110 mmol/L (98-107); Estimated CRCL calculation 50 ml/min; Estimated Glomerular Filt Rate > 60; Glucose 101 mg/dL (65-110)
[2021-04-03] MEDS: FAMOTIDINE 20 MG TABLET PO ×2 (08:22→21:11)
[2021-04-03] MEDS: NEBIVOLOL HCL 2.5 MG TABLET PO (08:22)
--- NOTE | 2021-04-03 10:05 | PM.PNORT ---
Progress Note: A&P Assessment and Plan (1) Postoperative wound infection: Code(s): T81.49XA - Infection following a procedure, other surgical site, initial encounter Status: Acute (2) History of left hip replacement: Code(s): Z96.642 - Presence of left artificial hip joint Status: Resolved Assessment and Plan: 81-year-old female who is postop day one and for debridement left hip wound. Yesterday in the operating room after the wound had been scrubbed, a needle was introduced into the hip joint space through the TFL muscle belly. Yoselyn colored otherwise normal appearing joint fluid was removed. There was no purulence. This appears to be confined to this superficial space. The wound is nice and dry today and minimal drainage coming out of the drain. Will plan on keeping her on the IV antibiotics (Ancef 2gm IV q8h) until Tuesday at which point if the wound is dry she will be discharged home on oral antibiotics for a total of four weeks. I have discussed this with Dr. Martinez earlier today. Surgical findings discussed in detail with the patient. Although she is anxious to go home right away, she understands the importance of close follow-up in the immediate postoperative period. Currently on Lovenox but will change that to Xarelto upon discharge. Appreciate the assistance of Infectious Disease and the hospitalist group. Subjective Subjective Date/Time Seen: 04/03/21 10:05 Post Op day: 1 Principal diagnosis: Status post washout left hip wound Interval history: Postop day one and four for this 81-year-old female with a superficial left hip wound infection. She is feeling well this morning and anxious to leave. Exam Const: General: cooperative, comfortable and no acute distress Nutritional Appearance: well nourished Extrem: Other: Left hip wound dry. Of very little erythema. Minimal blood-tinged serous drainage in the drain tube, virtually none in the collection device. Left lower extremity exam otherwise unremarkable. Objective Data Vital Signs Vital Signs: Vital Signs - 24 hr 04/02/21 14:00 04/02/21 16:31 04/02/21 16:45 Temperature 99.8 F H 98.4 F Pulse Rate 69 69 70 Respiratory Rate 18 16 14 Blood Pressure 137/66 136/61 140/59 L Pulse Oximetry 99 100 100 04/02/21 17:00 04/02/21 17:15 04/02/21 17:25 Temperature 97.1 F L Pulse Rate 71 72 71 Respiratory Rate 14 12 14 Blood Pressure 145/66 H 140/65 138/61 Pulse Oximetry 98 95 95 04/02/21 17:35 04/02/21 19:23 04/02/21 20:00 Temperature 97.0 F L Pulse Rate 72 72 72 Respiratory Rate 14 18 14 Blood Pressure 136/65 110/54 L Pulse Oximetry 94 97 94 04/02/21 22:00 04/03/21 02:00 04/03/21 06:00 Temperature 97.0 F L 96.8 F L 96.4 F L Pulse Rate 72 73 70 Respiratory Rate 18 20 18 Blood Pressure 110/54 L 117/44 L 122/64 Pulse Oximetry 97 98 96 04/03/21 08:22 Temperature Pulse Rate 78 Respiratory Rate Blood Pressure Pulse Oximetry Intake/Output Intake/Output: Intake & Output 03/31/21 04/01/21 04/02/21 04/03/21 23:59 23:59 23:59 23:59 Intake Total 2330 / 2330 1620 / 1620 1210 / 1210 2380 / 2380 Output Total 650 / 650 1250 / 1250 2100 / 2100 1300 / 1300 Balance 1680 / 1680 370 / 370 -890 / -890 1080 / 1080 Meds/Results Medications: Active Medications Generic Name Dose Route Start Last Admin Trade Name Freq PRN Reason Stop Dose Admin Acetaminophen 650 mg 04/02/21 17:38 Acetaminophen 325 Mg Tablet PO Q6H PRN Pain Rated 1-3 Hydrocodone Bitart/Acetaminophen 1 tab 04/02/21 17:38 Hydrocodone/Acetaminophen (*Crx) 5-325 Mg Tablet PO Q3H PRN Pain Rated 4-6 Al Hydrox/Mg Hydrox/Simethicone 30 ml 03/30/21 22:26 Mag Hydrox/Al Hydrox/Simeth 30 Ml Udc PO Q6H PRN Indigestion Docusate Sodium 100 mg 04/02/21 17:38 04/03/21 08:22 Docusate Sodium 100 Mg Capsule PO Not Given BID PATRICIO Enoxaparin Sodium 30 mg 04/03/21 16:00 Enoxaparin 30 Mg/0.3 Ml
--- NOTE | 2021-04-03 15:50 | PM.IMPN ---
Progress Note: A&P Assessment and Plan (1) Postoperative wound infection: Code(s): T81.49XA - Infection following a procedure, other surgical site, initial encounter Status: Acute Assessment and Plan: Presented with several days of hip wound drainage following left total hip replacement on 03/16/21. She is now s/p irrigation and debridement of left hip superficial wound infection performed by Dr. Ross on 03/30/2021 and subsequent washout and closure over drain on 04/02 IV Ancef resumed 04/02. Vancomycin discontinued with last dose 04/01 at 2300. Intraoperative cultures with heavy growth of Staphylococcus aureus, sensitive to cefazolin. Blood cultures pending. Preliminary results with no growth to date Appreciate infectious disease consultation Supportive care. Analgesics available as needed. She remains afebrile, no leukocytosis. Continue with drain; care per ortho (2) History of left hip replacement: Code(s): Z96.642 - Presence of left artificial hip joint Status: Resolved Assessment and Plan: Performed on 03/16/2021. Orthopedic surgery managing. Please see above. Lovenox for DVT prophylaxis. Planning for xarelto on discharge. (3) Essential (primary) hypertension: Code(s): I10 - Essential (primary) hypertension Status: Acute Assessment and Plan: Blood pressure reviewed and has been well controlled. Last BP 117/75. Continue nebivolol Monitor BP trends Subjective Date/time seen: 04/03/21 15:50 Interval history: Date of service: 04/03/2021 Jazmín Avila is an 81-year-old female with a history of hypertension and osteoarthritis who underwent left hip replacement on 03/16/2021 and subsequently developed postoperative wound infection now s/p irrigation/ debridement on 03/30/2021 and on 04/02/[address] Ross. she is doing well today. She tolerated her procedure well yesterday. Continues to complain of soreness of the hip and pelvic region but notes improvement daily. Feels her left leg swelling has resolved entirely. Denies nausea or vomiting. Tolerating her diet. She had a bowel movement today. Denies fever or chills. Denies drainage, warmth, or redness from the hip wound. No urinary symptoms. She has been sleeping well. She is eager for discharge home. Her is present during interview and exam. Review of Systems Review of Systems: All systems reviewed & are unremarkable except as noted in HPI and below Exam Narrative: Ms. Avila is a well-nourished, well-appearing 81-year-old female who is sitting in a chair at the bedside. She appears comfortable and is in NARD. Neuro: awake, alert and oriented x4, speech clear, no focal neuro deficits noted HEENMT: normocephalic, atraumatic, EOMI, sclerae anicteric, moist oral mucosa Neck: supple, no lymphadenopathy Respiratory: clear to auscultation bilaterally, nonlabored breathing Cardio: regular rate, regular rhythm with S1-S2 Abdomen: nondistended, normoactive bowel sounds, soft, nontender to palpation Extremities: left lateral thigh minimally tender to palpation, hip nontender. Neurovascularly intact. Able to wiggle toes bilaterally. DP pulses 2+ bilaterally. Right lower extremity no edema, erythema, tenderness to palpation. Left lower extremity no edema. Skin: Left hip covered in bandage that is c/d/i. Drain with meera colored fluid, no purulence. No rashes or lesions, warm and dry Psych: appropriate mood and affect, judgment and insight intact Objective Data Vital Signs Vital Signs: Vital Signs - 24 hr 04/02/21 16:31 04/02/21 16:45 04/02/21 17:00 Temperature 98.4 F Pulse Rate 69 70 71 Respiratory Rate 16 14 14 Blood Pressure 136/61 140/59 L 145/66 H Pulse Oximetry 100 100 98 04/02/21 17:15 04/02/21 17:25 04/02/21 17:35 Temperature 97.1 F L Pulse Rate 72 71 72 Respiratory Rate 12 14 14 Blood Pressure 140/65 138/61 136/65 Pulse Oximetry 95 95 94
[2021-04-03] MEDS: ENOXAPARIN 30 MG/0.3 ML SYRINGE SUB-Q (16:51)
[2021-04-03] MEDS: SENNOSIDES 8.6 MG TABLET PO (21:11)
[2021-04-04] VITALS (7 sets, daily range): BP systolic 106–137; BP diastolic 54–69; PULSE 66–94; RESP 16; TEMP 36–36.9; O2SAT 96–100
[2021-04-04] MEDS: ceFAZolin 2 GM/D5W 50 ML 2 GM/50 ML BAG IVPB ×3 (02:53→18:30)
[2021-04-04 06:12] LABS: Hematocrit 29.6 % (37.0-47.0); Mean Corpuscular HGB Conc 30.4 g/dl (32-36); Mean Corpuscular Hemoglobin 29.4 pg (26-34); Mean Corpuscular Volume 96.7 fl (80-100); Mean Platelet Volume 9.4 fl (7.4-10.4); Platelet Count Result 368 k/mm3 (150-375); Red Blood Count 3.06 M/mm3 (4.2-5.4); Red Cell Distribution Width 13.5 % (11.5-14.5); White Blood Count 5.9 K/mm3 (4.5-10.0)
[2021-04-04 06:30] LABS: Anion Gap 7 mmol/L (8-16); Blood Urea Nitrogen 11 mg/dL (7-17); Calcium 8.7 mg/dL (8.4-10.2); Carbon Dioxide 27 mmol/L (22-30); Chloride 103 mmol/L (98-107); Estimated CRCL calculation 44 ml/min; Estimated Glomerular Filt Rate > 60; Glucose 83 mg/dL (65-110); Potassium 3.7 mmol/L (3.4-5.0); Sodium 137 mmol/L (137-145)
[2021-04-04] MEDS: FAMOTIDINE 20 MG TABLET PO ×2 (08:34→21:30)
[2021-04-04] MEDS: ENOXAPARIN 30 MG/0.3 ML SYRINGE SUB-Q ×2 (08:34→21:30)
[2021-04-04] MEDS: NEBIVOLOL HCL 2.5 MG TABLET PO (08:35)
--- NOTE | 2021-04-04 09:44 | PM.IMPN ---
Progress Note: A&P Assessment and Plan (1) Postoperative wound infection: Code(s): T81.49XA - Infection following a procedure, other surgical site, initial encounter Status: Acute Assessment and Plan: Presented with several days of hip wound drainage following left total hip replacement on 03/16/21. She is now s/p irrigation and debridement of left hip superficial wound infection performed by Dr. Ross on 03/30/2021 and subsequent washout and closure over drain on 04/02 IV Ancef resumed 04/02. Vancomycin discontinued with last dose 04/01 at 2300. Intraoperative cultures with heavy growth of Staphylococcus aureus, sensitive to cefazolin. Blood cultures pending. Preliminary results with no growth to date Appreciate infectious disease consultation Supportive care. Analgesics available as needed. She remains afebrile, no leukocytosis. Continue with drain; care per ortho Hopeful discharge tomorrow on p.o. antibiotics if continued improvement (2) History of left hip replacement: Code(s): Z96.642 - Presence of left artificial hip joint Status: Resolved Assessment and Plan: Performed on 03/16/2021. Orthopedic surgery managing. Please see above. Lovenox for DVT prophylaxis. Planning for xarelto on discharge. (3) Essential (primary) hypertension: Code(s): I10 - Essential (primary) hypertension Status: Acute Assessment and Plan: Blood pressure reviewed and has been well controlled. Last BP 137/69. Continue nebivolol Monitor BP trends Subjective Date/time seen: 04/04/21 09:44 Interval history: Date of service: 04/04/2021 Jazmín Avila is an 81-year-old female with a history of hypertension and osteoarthritis who underwent left hip replacement on 03/16/2021 and subsequently developed postoperative wound infection now s/p irrigation/ debridement on 03/30/2021 and on 04/02/[address] Ross. she continues to do well. She is still endorsing soreness of left hip and pelvic region that continues to improve daily. She rates the soreness about a 4/10 today. She is still getting around independently and tolerating well. Denies numbness or tingling in extremities. Denies nausea, vomiting, fever, chills, dizziness, lightheadedness, shortness of breath, cough, chest pain, or palpitations. She has been eating and drinking well. Having regular bowel movements and denies urinary symptoms. Review of Systems Review of Systems: All systems reviewed & are unremarkable except as noted in HPI and below Exam Narrative: Ms. Avila is a well-nourished, well-appearing 81-year-old female who is sitting in a chair at the bedside. She appears comfortable and is in NARD. Neuro: awake, alert and oriented x4, speech clear, no focal neuro deficits noted HEENMT: normocephalic, atraumatic, EOMI, sclerae anicteric, moist oral mucosa Neck: supple, no lymphadenopathy Respiratory: clear to auscultation bilaterally, nonlabored breathing Cardio: regular rate, regular rhythm with S1-S2 Abdomen: nondistended, normoactive bowel sounds, soft, nontender to palpation Extremities: left lateral thigh minimally tender to palpation, hip nontender. Neurovascularly intact. Able to wiggle toes bilaterally. DP pulses 2+ bilaterally. Right lower extremity no edema, erythema, tenderness to palpation. Left lower extremity no edema. Skin: Left hip covered in bandage that is c/d/i. Drain with meera colored fluid in scant amount of sanguinous fluid in tubing. No rashes or lesions, warm and dry Psych: appropriate mood and affect, judgment and insight intact Objective Data Vital Signs Vital Signs: Vital Signs - 24 hr 04/03/21 10:00 04/03/21 14:00 04/03/21 18:00 Temperature 97.2 F L 96.9 F L 97.3 F L Pulse Rate 76 69 76 Respiratory Rate 18 18 18 Blood Pressure 118/63 117/75 102/47 L Pulse Oximetry 99 99 100 04/03/21 20:00 04/03/21 21:13 04/04/21 00:32 Temperature 97.7 F 98.4 F Pulse
--- NOTE | 2021-04-04 10:00 | PM.PNORT ---
Progress Note: A&P Assessment and Plan (1) Postoperative wound infection: Code(s): T81.49XA - Infection following a procedure, other surgical site, initial encounter Status: Acute (2) History of left hip replacement: Code(s): Z96.642 - Presence of left artificial hip joint Status: Resolved Assessment and Plan: 81-year-old female postop days two and five left hip wound washout. Everything looks really good. Plan on and running IV antibiotics through the rest of today and then discharge home tomorrow. Discussed fully with patient. She will go home on Xarelto x2 weeks followed by aspirin for four weeks and Keflex for four weeks. Subjective Subjective Date/Time Seen: 04/04/21 10:00 Post Op day: 2 ( status post washout left hip) Principal diagnosis: left hip wound superficial infection Interval history: 81-year-old female who is postop days two and five from washout of left hip wound. No complaints today. Overall doing well. Exam Const: General: cooperative, comfortable and no acute distress Nutritional Appearance: well nourished ( BMI 24.0) Extrem: Other: Left hip wound dry. Virtually no drain accumulation. Drain removed without difficulty. New dressing applied to the left hip wound. Remainder left lower extremity exam unremarkable. No pain with movement of the left hip. Objective Data Vital Signs Vital Signs: Vital Signs - 24 hr 04/03/21 14:00 04/03/21 18:00 04/03/21 20:00 Temperature 96.9 F L 97.3 F L Pulse Rate 69 76 77 Respiratory Rate 18 18 18 Blood Pressure 117/75 102/47 L Pulse Oximetry 99 100 96 04/03/21 21:13 04/04/21 00:32 04/04/21 06:00 Temperature 97.7 F 98.4 F 98.2 F Pulse Rate 77 74 68 Respiratory Rate 18 16 16 Blood Pressure 108/54 L 128/61 137/69 Pulse Oximetry 96 96 97 04/04/21 08:35 Temperature Pulse Rate 94 Respiratory Rate Blood Pressure Pulse Oximetry Intake/Output Intake/Output: Intake & Output 04/01/21 04/02/21 04/03/21 04/04/21 23:59 23:59 23:59 23:59 Intake Total 1620 / 1620 1210 / 1210 3560 / 3560 400 / 400 Output Total 1250 / 1250 2100 / 2100 1950 / 1949 1100 / 1100 Balance 370 / 370 -890 / -890 1610 / 1610 -700 / -700 Meds/Results Medications: Active Medications Generic Name Dose Route Start Last Admin Trade Name Freq PRN Reason Stop Dose Admin Acetaminophen 650 mg 04/02/21 17:38 Acetaminophen 325 Mg Tablet PO Q6H PRN Pain Rated 1-3 Hydrocodone Bitart/Acetaminophen 1 tab 04/02/21 17:38 Hydrocodone/Acetaminophen (*Crx) 5-325 Mg Tablet PO Q3H PRN Pain Rated 4-6 Al Hydrox/Mg Hydrox/Simethicone 30 ml 03/30/21 22:26 Mag Hydrox/Al Hydrox/Simeth 30 Ml Udc PO Q6H PRN Indigestion Docusate Sodium 100 mg 04/02/21 17:38 04/04/21 08:42 Docusate Sodium 100 Mg Capsule PO Not Given BID [facility] Enoxaparin Sodium 30 mg 04/03/21 16:00 04/04/21 08:34 Enoxaparin 30 Mg/0.3 Ml Syringe SUB-Q 30 mg Q12HR PATRICIO Administration Famotidine 20 mg 03/31/21 09:00 04/04/21 08:34 Famotidine 20 Mg Tablet PO 20 mg Q12HR PATRICIO Administration Hydrocortisone 1 applic 03/30/21 22:36 Hydrocortisone 2.5% Cream 30 Gm Tube TOPICAL PRN PRN allergic reaction Hydroxyzine HCl 50 mg 03/30/21 22:26 Hydroxyzine Hcl 25 Mg Tablet PO Q4H PRN Itching Cefazolin Sodium 2 gm in 50 mls @ 100 mls/hr 04/02/21 19:00 04/04/21 02:53 Ancef 2 Gm/D5w 50 Ml IVPB 100 mls/hr Q8H PATRICIO Administration Magnesium Hydroxide 30 ml 03/30/21 22:26 Magnesium Hydroxide Susp 30 Ml Udc PO BID PRN Constipation Magnesium Hydroxide 30 ml 04/02/21 17:38 Magnesium Hydroxide Susp 30 Ml Udc PO BID PRN Constipation Naloxone HCl 0.1 mg 03/30/21 22:26 Naloxone Hcl 0.4 Mg/Ml Vial IV PUSH Q2M PRN Opiate Reversal Nebivolol 2.5 mg 03/31/21 09:00 04/04/21 08:35 Nebivolol Hcl 2.5 Mg Tablet PO 2.5 mg QAM PATRICIO Administratio
[2021-04-04] MEDS: SENNOSIDES 8.6 MG TABLET PO (21:30)
[2021-04-05 01:13] VITALS: BP 128/66; PULSE 72; RESP 18; TEMP 36.3; O2SAT 99
[2021-04-05] MEDS: ceFAZolin 2 GM/D5W 50 ML 2 GM/50 ML BAG IVPB (03:05)
[2021-04-05 06:00] VITALS: BP 136/72; PULSE 70; RESP 16; TEMP 36.7; O2SAT 96
[2021-04-05 06:11] LABS: Hematocrit 29.2 % (37.0-47.0); Hemoglobin 8.9 g/dL (12.0-15.0)
[2021-04-05 06:15] LABS: Anion Gap 4 mmol/L (8-16); Blood Urea Nitrogen 14 mg/dL (7-17); Calcium 8.6 mg/dL (8.4-10.2); Carbon Dioxide 29 mmol/L (22-30); Chloride 103 mmol/L (98-107); Estimated CRCL calculation 39 ml/min; Estimated Glomerular Filt Rate > 60; Glucose 87 mg/dL (65-110); Potassium 3.5 mmol/L (3.4-5.0); Sodium 136 mmol/L (137-145)
[2021-04-05 08:22] VITALS: PULSE 88
[2021-04-05] MEDS: FAMOTIDINE 20 MG TABLET PO (08:22)
[2021-04-05] MEDS: NEBIVOLOL HCL 2.5 MG TABLET PO (08:22)
[2021-04-05] MEDS: ENOXAPARIN 30 MG/0.3 ML SYRINGE SUB-Q (08:22)
--- NOTE | 2021-04-05 08:47 | PM.DS ---
DS: Admitting Diagnosis Admitting Diagnosis Left hip superficial wound infection DS: Discharge Diagnosis Discharge Diagnosis (1) Postoperative wound infection: Code(s): T81.49XA - Infection following a procedure, other surgical site, initial encounter Status: Acute (2) History of left hip replacement: Code(s): Z96.642 - Presence of left artificial hip joint Status: Resolved Assessment and Plan: 81-year-old female who is going to be sure home today. She is postop day three and six washout left hip wound superficial infection. Overall she has done well. She is going to be discharged home with the home health providing follow-up. She has an appointment to see me in the office on April 16, 2021 for suture removal. She is instructed to call with any questions prior to follow-up. The surgeries and instructions were reviewed in detail with the patient and she has a solid understanding what our plan is. DS: Summary Hospital Course Reason for hospitalization: Treatment of left hip superficial wound infection Hospital Course: on March 30, 2021, the patient was two weeks postop left hip replacement. She had developed a superficial wound infection. It was debrided on March 30, 2021 and then re-debrided on April 02, 2021 because of recurrence of the purulence. Since the second debridement the wound has been dry and she is having virtually no pain in the left hip area. She is going to be discharged home on oral antibiotics ([id number]). She was seen by infectious disease and she has got a methicillin sensitive Staph aureus. She also has been followed by the hospitalist group. Her medical status has been stable through the hospitalization. Status at Discharge Functional status at discharge: uses cane/walker Overall status at discharge: patient is not back to baseline Time Spent with Patient Time attestation: Total time spent providing and/or coordinating discharge services: Exam Const: General: cooperative, no acute distress and alert Nutritional Appearance: other Orientation/consciousness: patient oriented x3 Limitations: no limitations HENMT: Head: normal to inspection Ears: hearing grossly normal bilaterally Face and sinus: face symmetric Mouth: Yes moist mucous membranes Teeth and gingiva: fair dentition Eyes: Alignment and Position: alignment normal and position normal Sclera: sclerae normal Neck: Neck: normal visual inspection and nontender Chest: Chest palpation & inspection: normal inspection of the chest Resp: Effort & Inspection: normal respiratory effort and able to speak in complete sentences GI: Inspection: other ( Nontender, nondistended) Skin: General skin exam: normal color Rashes: no rashes Neuro: General: patient oriented x3 Cognition (Neuro): normal cognition Speech: normal speech Gait exam (Neuro): Other gait observations present Motor exam (neuro): 5/5 motor strength present throughout ( left lower extremity) Sensory Exam: normal sensation Extrem: General: normal to inspection and other Other: Exam of left hip wound shows skin edges well apposed with no drainage. She has induration around the wound as expected but essentially no erythema. Mepilex dressing placed on April 05, 2021. This is going to be changed on April 10, 2021 Psych: Appearance: grossly normal Mental Status: mental status grossly normal DS: Data Data Completed and Pending Labs on day of discharge: Labs from last 24 hours 04/05/21 04/05/21 05:48 05:48 Hgb 8.9 L Hct 29.2 L Sodium 136 L Potassium 3.5 Chloride 103 Carbon Dioxide 29 Anion Gap 4 L BUN 14 Creatinine 0.80 Estim Creat Clear Calc 39 Estimated GFR > 60 Glucose 87 Calcium 8.6 Preliminary micro results at discharge 03/30/21 20:09 Anaerobic Culture - Preliminary Hip Left 03/31/21 08:38 Blood Culture - Preliminary Blood 03/31/21 08:40 Blood Culture - Preliminary Blood
--- NOTE | 2021-04-05 10:58 | PM.IMPN ---
Progress Note: A&P Assessment and Plan (1) Postoperative wound infection: Code(s): T81.49XA - Infection following a procedure, other surgical site, initial encounter Status: Acute Assessment and Plan: Presented with several days of hip wound drainage following left total hip replacement on 03/16/21. She is now s/p irrigation and debridement of left hip superficial wound infection performed by Dr. Ross on 03/30/2021 and subsequent washout and closure over drain on 04/02 IV Ancef resumed 04/02. Vancomycin discontinued with last dose 04/01 at 2300. Intraoperative cultures with heavy growth of Staphylococcus aureus, sensitive to cefazolin. Blood cultures pending. Preliminary results with no growth to date Appreciate infectious disease consultation Supportive care. Analgesics available as needed. She remains afebrile, no leukocytosis. She will be discharged home on p.o. Keflex and will follow-up with Dr. Ross on 04/16/21 (2) History of left hip replacement: Code(s): Z96.642 - Presence of left artificial hip joint Status: Resolved Assessment and Plan: Performed on 03/16/2021. Orthopedic surgery managing. Please see above. Lovenox for DVT prophylaxis during hospitalization. Discharge home with Xarelto. Educated the patient on bleeding risk. (3) Essential (primary) hypertension: Code(s): I10 - Essential (primary) hypertension Status: Acute Assessment and Plan: Blood pressure reviewed and have been well controlled during hospitalization. Last BP 136/72. Continue nebivolol Subjective Date/time seen: 04/05/21 10:58 Interval history: Date of service: 04/05/2021 Jazmín Avila is an 81-year-old female with a history of hypertension and osteoarthritis who underwent left hip replacement on 03/16/2021 and subsequently developed postoperative wound infection now s/p irrigation/ debridement on 03/30/2021 and on 04/02/[address] Ross. she is feeling very well today. Pain has improved and her swelling has also improved. She is having regular bowel movements and tolerating her diet. She will be discharging home today and she is eager to return home with her who will provide assistance to her if needed. Review of Systems Review of Systems: All systems reviewed & are unremarkable except as noted in HPI and below Exam Narrative: Ms. Avila is a well-nourished, well-appearing 81-year-old female who is standing upright. She appears comfortable and is in NARD. Neuro: awake, alert and oriented x4, speech clear, no focal neuro deficits noted HEENMT: normocephalic, atraumatic, EOMI, sclerae anicteric, moist oral mucosa Neck: supple, no lymphadenopathy Respiratory: clear to auscultation bilaterally, nonlabored breathing Cardio: regular rate, regular rhythm with S1-S2 Abdomen: nondistended, normoactive bowel sounds, soft, nontender to palpation Extremities: Trace left ana ankle edema, no edema of right lower extremity, bilateral lower extremities no erythema or tenderness to palpation. DP pulses 2+ bilaterally. Hip exam deferred as the patient was dressed and prepared for discharge. Skin: No rashes or lesions, warm and dry Psych: appropriate mood and affect, judgment and insight intact Objective Data Vital Signs Vital Signs: Vital Signs - 24 hr 04/04/21 14:20 04/04/21 19:30 04/04/21 22:00 Temperature 98.2 F 97.5 F L 96.8 F L Pulse Rate 74 77 66 Respiratory Rate 16 16 16 Blood Pressure 106/54 L 116/61 112/54 L Pulse Oximetry 98 99 97 04/05/21 01:13 04/05/21 06:00 04/05/21 08:22 Temperature 97.3 F L 98.0 F Pulse Rate 72 70 88 Respiratory Rate 18 16 Blood Pressure 128/66 136/72 Pulse Oximetry 99 96 Intake/Output Intake/Output: Intake & Output 04/02/21 04/03/21 04/04/21 04/05/21 23:59 23:59 23:59 23:59 Intake Total 1210 3560 1750 920 Output Total 2100 1950 2600 Balance -890 1610 -850 920 Meds/Results Radiology Results:
== END 2021-04-05 09:36 | disposition home health service (06) | DRG 858 ==
PROVIDERS: Physician Assistant; Admitting Provider Orthopaedic Surgery; PCP Family Medicine; Visit Provider Orthopaedic Surgery
PROC: 3E10X8X Irrigation of Skin and Mucous Membranes using Irrigating Substance, Diagnostic (ICD-10-PCS; CPT 27130; principal; 2021-03-30 19:00)
PROC: 0JBM0ZZ Excision of Left Upper Leg Subcutaneous Tissue and Fascia, Open Approach (ICD-10-PCS; CPT 27130; principal; 2021-04-02 15:00)
DX: T81.41XA Infection following a procedure, superficial incisional surgical site, initial encounter (principal); B95.61 Methicillin susceptible Staphylococcus aureus infection as the cause of diseases classified elsewhere; I10 Essential (primary) hypertension; Z96.642 Presence of left artificial hip joint; Z87.891 Personal history of nicotine dependence; Z90.49 Acquired absence of other specified parts of digestive tract; Z90.710 Acquired absence of both cervix and uterus
CPT/HCPCS: 36415; 73502; 80048; 85014; 85018; 85025; 85027; 87040; 87070; 87075; 87147; 87186; 87205; 97110; 97116; 97161; 97165; 97530; 97535; A9270; J0690; J1100; J1170; J1650; J2310; J2405; J2704; J3010; J3370; J7030; J7120

== ENCOUNTER 2021-05-02 23:27 | Emergency (ER) | payer MEDICARE, OTHER, SELFPAY ==
--- NOTE | ~2021-05-02 | XR_ITS ---
EXAMINATION: XR chest 1V INDICATION: Chest pain TECHNIQUE: AP view the chest is obtained. COMPARISON: 04/04/2020 FINDINGS: The lungs are free of acute opacities. There is no pleural effusion or pneumothorax. The ca rdiomediastinal silhouette is normal. Calcified pulmonary nodules and calcified left hilar and medias tinal lymph nodes are consistent with old granulomatous disease. There is S-shaped curvature of the s pine. IMPRESSION: 1. No acute cardiopulmonary abnormality. Reviewed, dictated and finalized at location A.
--- NOTE | ~2021-05-02 | XR_ITS ---
EXAMINATION: XR hip LT 2V w AP pelvis INDICATION: Left hip dislocation TECHNIQUE: AP view the pelvis and two views of the left hip are obtained. COMPARISON: 03/30/2021 FINDINGS: There are changes of left hip hemiarthroplasty. The femoral component demonstrates superior and lateral dislocation. No fracture is identified. There is mild soft tissue swelling overlying the left hip. Surgical changes are noted at L5-S1. IMPRESSION: 1. Left hip hemiarthroplasty with superior and lateral dislocation of the femoral component. Reviewed, dictated and finalized at location A. IMPRESSION: 1. Left hip hemiarthroplasty with superior and lateral dislocation of the femor al component.
--- NOTE | ~2021-05-02 | XR_ITS ---
EXAMINATION: XR hip LT 1V INDICATION: Left hip reduction TECHNIQUE: Single AP view of the left hip is obtained. COMPARISON: 05/02/2021 at 2259 hours FINDINGS: The previously described left hip dislocation has been reduced. Alignment is anatomic. No a cute osseous abnormality is identified. IMPRESSION: 1. Reduced left hip dislocation. Reviewed, dictated and finalized at location A.
[2021-05-02 22:19] VITALS: BP 178/82; PULSE 78; RESP 16; TEMP 36.6; O2SAT 97
--- NOTE | 2021-05-02 23:19 | ED.LOWEXIN ---
HPI - Extremity Injury (Lower) General Chief Complaint: Extremity Injury, Lower Stated Complaint: hip pain - recent replacement heard pop Source: patient Mode of arrival: EMS Limitations: no limitations History of Present Illness HPI Narrative: This is an 81 year old female with history of recent left hip replacement who presents for evaluation of left hip pain. She states tonight she was trying to get out of the tub when she felt a pop in her left hip. She states her left leg internally rotated and she has been unable to move her leg due to pain since. She had a left hip replaced on 03/16/21. She denies fall or hitting her head. EMS gave patient fentanyl 25 mcg in route to ER. Related Data Home Medications Medication Instructions Recorded Confirmed Bystolic 2.5 mg PO QAM 03/03/21 04/16/21 hydrocortisone 1 applic TOPICAL PRN PRN 03/03/21 04/16/21 sennosides [Senokot] 8.6 mg PO HS 03/03/21 04/16/21 triamcinolone acetonide 1 applic TOPICAL PRN PRN 03/03/21 04/16/21 aspirin 325 mg PO DAILY 03/30/21 04/16/21 Allergies Allergy/AdvReac Type Severity Reaction Status Date / Time J CARLOS Inhibitors Allergy Mild Cough Verified 05/02/21 22:35 Review of Systems Review of Systems: All systems reviewed & are unremarkable except as noted in HPI and below PMFSH Past Medical History Medical History Essential (primary) hypertension Hernia Pain of left hip Postoperative wound infection Surgical History Surgical History H/O repair of rotator cuff H/O: hysterectomy History of appendectomy History of cholecystectomy History of left hip replacement March 16, 2021 anterior approach History of lumbar surgery History of vitrectomy Family History Family History Mother Hypertension Carcinoma of colon Colon polyp Family history of malignant neoplasm of breast in first degree relative Father Family history of Parkinson's disease, Onset Age: 73 Social History Social History Smoking packs per day: 1 Smoking cigarettes per day: 20.0 Years smoked: 50 Smoking pack-years: 50.00 Smoking status: Former smoker Alcohol intake: never Substance use: never Spiritual care concerns: No Exam Const: General: no acute distress and alert Orientation/consciousness: patient oriented x3 HENMT: Head: normocephalic and atraumatic Face and sinus: normal facial exam, sinuses nontender and face symmetric Mouth: Yes Normal oral and palatal mucosa present, Yes lip normal, Yes oropharynx normal and Yes moist mucous membranes Eyes: Pupils: Equal, round and reactive pupils present EOM: EOMs intact bilaterally Resp: Effort & Inspection: normal respiratory effort and no retractions Auscultation: clear to auscultation bilaterally Cardio: Rate: regular rate Rhythm: regular rhythm Heart sounds: no murmurs GI: GI Palp: Yes Soft to palpation, No Tenderness to palpation present (GI) and No Guarding due to palpation present (GI) Auscultation: normal bowel sounds Neuro: General: patient oriented x3, moves all extremities and CN's II-XI intact bilaterally Extrem: Other: left lower extremity internally rotated, able to wiggle toes Psych: Mental Status: mental status grossly normal Affect: normal affect Course Reevaluation(s) Reevaluation #1: PAtient states she feels good and she is ready for discharge home. Date: 05/03/21 Time: 01:29 Consultations Consultation #1: I discussed case with Dr. Ross. He reviewed patient's xrays. He states patient should be placed in knee immobilizer and use walker to ambulate. Patient should call office on Tuesday to be seen this week. Date: 05/03/21 Time: 00:30 Vital Signs Vital signs: Vital Signs Temperature 97.9 F 05/02/21 22:19 Pulse Rate 78 05/02/21 22:19 R
[2021-05-03] VITALS (9 sets, daily range): BP systolic 126–151; BP diastolic 58–86; PULSE 71–81; RESP 12–20; TEMP 36.4–36.6; O2SAT 97–100
[2021-05-03] MEDS: SODIUM CHLORIDE 0.9% IV 1,000 ML 999 ML (01:04)
--- NOTE | 2021-05-03 01:05 | PC.NURSE ---
50 mg of propofol administered by EDP Dr. Avila at 0003.
== END 2021-05-03 02:00 | disposition home or self-care (01) ==
PROVIDERS: Emergency Provider General Practice; PCP Family Medicine
DX: T84.021A Dislocation of internal left hip prosthesis, initial encounter (principal); I10 Essential (primary) hypertension; Z79.82 Long term (current) use of aspirin; Y79.2 Prosthetic and other implants, materials and accessory orthopedic devices associated with adverse incidents
CPT/HCPCS: 27265; 71045; 73501; 73502; 99285; J2704; J7030

== ENCOUNTER 2021-05-04 23:17 | Emergency (ER) | payer MEDICARE, OTHER, SELFPAY ==
--- NOTE | ~2021-05-04 | XR_ITS ---
EXAMINATION: XR hip LT 2V w AP pelvis DATE: 05/04/2021 23:58 INDICATION: Prosthesis dislocation at the left hip TECHNIQUE: Anteroposterior view of the pelvis and anteroposterior and cross-table lateral views of th e left hip were obtained. COMPARISON: 05/03/2021 FINDINGS: Noncemented left total arthroplasty with posterior superior dislocation of the femoral from the aceta bular component. Both components appear to remain well seated in the proximal femur and left acetabul um respectively. No periprosthetic lucency to suggest loosening or infection. No fracture. Mild osteo arthritis at the right hip. L5-S1 posterior spinal fusion with a lateral vertical phani and pedicle scr ew fixation. There does appear to be some lucency surrounding the right-sided pedicle screws and coul d not exclude loosening. IMPRESSION: 1. Posterior superior dislocation of a left total hip arthroplasty. 2. Lucency surrounding the right-sided pedicle screws and L4-L5 posterior spinal fusion suggesting po ssible loosening. Reviewed, dictated and finalized at location A. IMPRESSION: 1. Posterior superior dislocation of a left total hip arthroplasty. 2. Lucency surrounding the right-sided pedicle screws and L4-L5 posterior spina l fusion suggesting possible loosening.
--- NOTE | ~2021-05-04 | XR_ITS ---
EXAMINATION: XR hip LT 1V DATE: 05/05/2021 01:10 INDICATION: Left hip dislocation status post reduction. TECHNIQUE: A single view of left hip was obtained. COMPARISON: Left hip radiographs 05/04/2021 FINDINGS: There is a total left hip arthroplasty in near-anatomic alignment. No fracture. No peripros thetic lucency to suggest loosening or infection. There are changes of posterior fusion procedure at L5-S1. There is severe lumbar spondylosis. IMPRESSION: 1. Total left hip arthroplasty in near-anatomic alignment. Reviewed, dictated and finalized at location A.
[2021-05-04 23:21] VITALS: PULSE 75; RESP 18; TEMP 36.8; O2SAT 98
[2021-05-05] VITALS (7 sets, daily range): BP systolic 126–157; BP diastolic 58–99; PULSE 71–78; RESP 14–22; TEMP 36.7–36.9; O2SAT 98–100
[2021-05-05] MEDS: MORPHINE SULFATE (*CRX) 4 MG/ML INJ IV PUSH
--- NOTE | 2021-05-05 00:08 | ED.GENADULT ---
HPI - General Adult General Chief complaint: Extremity Injury, Lower Stated complaint: LEFT HIP Time Seen by Provider: 05/04/21 23:36 History of Present Illness HPI narrative: Patient 81-year-old female presents the emergency department with chief complaint of left hip pain. Patient reports she has history of a hip prosthesis to the left and reports that she recently dislocated the prosthesis and reports this evening she had sudden onset of pain in the left hip and noticed that her leg shortened and rotated. Patient reports that she has no numbness or tingling reports she has pain in her left hip area reports it feels similar to whenever she is dislocated in the past. Related Data Home Medications Medication Instructions Recorded Confirmed Bystolic 2.5 mg PO QAM 03/03/21 04/16/21 hydrocortisone 1 applic TOPICAL PRN PRN 03/03/21 04/16/21 sennosides [Senokot] 8.6 mg PO HS 03/03/21 04/16/21 triamcinolone acetonide 1 applic TOPICAL PRN PRN 03/03/21 04/16/21 aspirin 325 mg PO DAILY 03/30/21 04/16/21 Allergies Allergy/AdvReac Type Severity Reaction Status Date / Time J CARLOS Inhibitors Allergy Mild Cough Verified 05/02/21 22:35 Review of Systems Review of Systems: A 10 system review of systems was completed on the patient and is negative except for what is stated in the HPI. Nursing and ancillary documentation was reviewed. [facility] Past Medical History Medical History Essential (primary) hypertension Hernia Pain of left hip Postoperative wound infection Surgical History Surgical History H/O repair of rotator cuff H/O: hysterectomy History of appendectomy History of cholecystectomy History of left hip replacement March 16, 2021 anterior approach History of lumbar surgery History of vitrectomy Family History Family History Mother Hypertension Carcinoma of colon Colon polyp Family history of malignant neoplasm of breast in first degree relative Father Family history of Parkinson's disease, Onset Age: 73 Social History Social History Smoking packs per day: 1 Smoking cigarettes per day: 20.0 Years smoked: 50 Smoking pack-years: 50.00 Smoking status: Former smoker Alcohol intake: never Substance use: never Spiritual care concerns: No Exam Narrative: GENERAL: Well-appearing, well-nourished, and in no acute distress. HEAD: Normocephalic, atraumatic. EYES: PERRLA and EOMI. ENT: Nares clear, no rhinorrhea or epistaxis. Mucous membranes moist. NECK: Supple. CHEST: Clear to auscultation. No respiratory distress. HEART: Regular rate and rhythm. No murmur heard. Normal peripheral pulses. ABDOMEN: Soft, nontender, nondistended, normal active bowel sounds. EXTREMITIES: Left lower extremity is shortened and internally rotated no edema. SKIN: Warm, dry, no rash. NEURO: No focal deficits. Alert and oriented x3. PSYCH: Normal mood and affect. Course Vital Signs Vital signs: Vital Signs Temperature 36.8 C 05/04/21 23:21 Pulse Rate 75 05/04/21 23:21 Respiratory Rate 18 05/04/21 23:21 Pulse Oximetry 98 05/04/21 23:21 Temperature 36.7 C 05/05/21 00:57 Pulse Rate 78 05/05/21 00:57 Respiratory Rate 22 H 05/05/21 00:57 Blood Pressure 157/99 H 05/05/21 00:57 Pulse Oximetry 100 05/05/21 00:57 Procedures Orthopedic Joint Reduction Joint #1: Orthopedic Joint Reduction Date: 05/05/21 Orthopedic Joint Reduction Time: 01:08 Time Out Performed: Yes Side: left Joint Reduction Location: hip Analgesia: procedural sedation Technique used: traction/counter-traction Post-reduction neuro exam: intact Post-reduction vascular: intact Post Reduction X-Ray Obtain
[2021-05-05] MEDS: SODIUM CHLORIDE 0.9% IV 1,000 ML 100 ML (01:12)
--- NOTE | 2021-05-05 01:16 | PC.NURSE ---
@ 00:55 dr. lerner gave 50 mg of propofol ivp.
== END 2021-05-05 02:48 | disposition home or self-care (01) ==
PROVIDERS: Emergency Provider Emergency Medicine; PCP Family Medicine
DX: T84.021A Dislocation of internal left hip prosthesis, initial encounter (principal); I10 Essential (primary) hypertension; Z79.82 Long term (current) use of aspirin; Z87.891 Personal history of nicotine dependence; Y79.2 Prosthetic and other implants, materials and accessory orthopedic devices associated with adverse incidents
CPT/HCPCS: 27265; 73501; 73502; 96374; 99285; J2270; J7030

== ENCOUNTER 2021-07-09 13:29 | Emergency (ER) | payer MEDICARE, OTHER, SELFPAY ==
[2021-07-09] VITALS (8 sets, daily range): BP systolic 136–175; BP diastolic 65–89; PULSE 65–74; RESP 12–20; TEMP 36.8–36.9; O2SAT 99–100
--- NOTE | ~2021-07-09 | XR_ITS ---
XR hip LT 2V w AP pelvis 07/09/2021 14:59 Indication: Evaluate left hip post reduction Procedure: AP pelvis and 2 views left hip Comparison: 07/09/2021 Findings: There is anatomic alignment of the left hip arthroplasty post reduction. No underlying frac ture or traumatic malalignment. There are surgical changes at the lumbosacral junction. Impression: 1: Anatomic alignment of the left hip post reduction. Reviewed, dictated and finalized at location A. ANALYST Impression: 1: Anatomic alignment of the left hip post reduction.
--- NOTE | ~2021-07-09 | XR_ITS ---
EXAMINATION: XR hip LT 2V w AP pelvis INDICATION: Left hip dislocation TECHNIQUE: AP view the pelvis and two views of the left hip are obtained. COMPARISON: 05/28/2021 FINDINGS: There are changes of left hip arthroplasty. The femoral component demonstrates superolatera l and mild posterior displacement relative to the acetabular component. There is moderate osteoarthri tis of the right hip. No fracture is identified. There are surgical changes of the lumbar spine. IMPRESSION: 1. Left hip dislocation. Reviewed, dictated and finalized at location A. [employer] IMPRESSION: 1. Left hip dislocation.
[2021-07-09] MEDS: MORPHINE SULFATE (*CRX) 4 MG/ML INJ IV PUSH (14:06)
--- NOTE | 2021-07-09 14:24 | ED.LOWEXIN ---
HPI - Extremity Injury (Lower) General Chief Complaint: Extremity Injury, Lower Stated Complaint: Dislocation of Hip Time Seen by Provider: 07/09/21 13:34 Source: patient History of Present Illness HPI Narrative: Patient presents with left hip location. She had a total hip replacement a couple months ago since then she is had to hip dislocations today would be her third. Reports she lifted her leg up to her can put her sock on her foot and felt sudden onset of pain in her left hip felt similar to her prior dislocations. She denies any numbness or weakness distally. Pain is achy, constant, worse with any sort of body movement, does not radiate. Related Data Home Medications Medication Instructions Recorded Confirmed Bystolic 2.5 mg PO QAM 03/03/21 05/28/21 hydrocortisone 1 applic TOPICAL PRN PRN 03/03/21 05/28/21 sennosides [Senokot] 8.6 mg PO HS 03/03/21 05/28/21 triamcinolone acetonide 1 applic TOPICAL PRN PRN 03/03/21 05/28/21 aspirin 325 mg PO DAILY 03/30/21 05/28/21 Allergies Allergy/AdvReac Type Severity Reaction Status Date / Time J CARLOS Inhibitors Allergy Mild Cough Verified 05/12/21 11:49 Review of Systems Review of Systems: CONSTITUTIONAL: Denies fever, chills, or sweats. EYES: Denies visual changes, redness, or discharge. ENT: Denies rhinorrhea, congestion, sore throat, or otalgia. CARDIOVASCULAR: Denies chest pain, palpitations, or edema. RESPIRATORY: Denies cough or dyspnea. GASTROINTESTINAL: Denies abdominal pain, nausea, vomiting, or diarrhea. GENITOURINARY: Denies dysuria or hematuria. SKIN: Denies rash or itching. MUSCULOSKELETAL: Denies back pain, joint pain, or myalgia. NEUROLOGIC: Denies headache, numbness, dizziness, or weakness. PSYCHIATRIC: Denies anxiety or depression. All systems reviewed & are unremarkable except as noted in HPI and below PMFSH Past Medical History Medical History Essential (primary) hypertension Hernia Pain of left hip Surgical History Surgical History H/O repair of rotator cuff H/O: hysterectomy History of appendectomy History of cholecystectomy History of left hip replacement March 16, 2021 anterior approach History of lumbar surgery History of vitrectomy Postoperative wound infection Superficial wound infection treated effectively with serial debridement and antibiotics. Family History Family History Mother Hypertension Carcinoma of colon Colon polyp Family history of malignant neoplasm of breast in first degree relative Father Family history of Parkinson's disease, Onset Age: 73 Social History Social History Smoking packs per day: 1 Smoking cigarettes per day: 20.0 Years smoked: 50 Smoking pack-years: 50.00 Smoking status: Former smoker Alcohol intake: never Substance use: never Spiritual care concerns: No Exam Narrative: GENERAL: Well-appearing, well-nourished, and in no acute distress. HEAD: Normocephalic, atraumatic. EYES: PERRLA and EOMI. ENT: Nares clear, no rhinorrhea or epistaxis. Mucous membranes moist. NECK: Supple. No masses. No JVD EXTREMITIES: Normal range of motion. Left lower extremity internally rotated and shortened there is diffuse tenderness to the left hip. 2+ DP pulses bilaterally sensation intact to light touch in the bilateral lower extremities SKIN: Warm, dry, no rash. NEURO: No focal deficits. Alert and oriented x3. PSYCH: Normal mood and affect. Course Reevaluation(s) Reevaluation #1: Patient reports feeling much improved after procedure. Discussed with her surgeon who will follow up with her as an outpatient. Date: 07/09/21 Time: 15:14 Vital Signs Vital signs: Vital Signs Temperature 36.8 C 07/09/21 13:31 Pulse Rate 74 07/09/21 13:31 Respiratory Rate 16
--- NOTE | 2021-07-09 15:16 | PC.NURSE ---
50mg of diprivan administered at [address] Cadet.
== END 2021-07-09 15:49 | disposition home or self-care (01) ==
PROVIDERS: Emergency Provider Emergency Medicine; PCP Family Medicine
DX: T84.021A Dislocation of internal left hip prosthesis, initial encounter (principal); I10 Essential (primary) hypertension; Z79.82 Long term (current) use of aspirin; Z87.891 Personal history of nicotine dependence
CPT/HCPCS: 27266; 73502; 96374; 99285; J2270

== ENCOUNTER → 2021-08-11 10:32 | Outpatient (CLI) | payer MEDICARE, OTHER, SELFPAY ==
[2021-08-12 03:58] LABS: SARS-CoV-2 RNA PCR Positive
== END ==
PROVIDERS: PCP Family Medicine; Visit Provider Physician Assistant Medical
DX: U07.1 COVID-19 (principal)
CPT/HCPCS: C9803; U0003; U0005

== ENCOUNTER 2021-08-13 07:26 | Outpatient (RCR) | payer MEDICARE, OTHER, SELFPAY ==
[2021-08-13] MEDS: diphenhydrAMINE HCl CAP 25 MG CAPSULE PO (07:41)
[2021-08-13] MEDS: ACETAMINOPHEN 325 MG TABLET 650 MG PO (07:41)
[2021-08-13] MEDS: FAMOTIDINE 20 MG TABLET PO (07:41)
[2021-08-13 07:47] VITALS: BP 119/66; PULSE 73; TEMP 36.6; O2SAT 97
[2021-08-13 09:14] VITALS: BP 94/58
== END 2021-08-13 16:59 ==
LOC: AMCINF 07:26
PROVIDERS: PCP Family Medicine; Visit Provider Internal Medicine Hematology & Oncology
DX: U07.1 COVID-19 (principal); I10 Essential (primary) hypertension
CPT/HCPCS: A9270; M0245; Q0245

== ENCOUNTER 2021-08-18 14:46 | Emergency (ER) | payer MEDICARE, OTHER, SELFPAY ==
--- NOTE | ~2021-08-18 | CT_ITS ---
EXAMINATION: CT abdomen pelvis wo con EXAM DATE: 08/18/2021 23:23 INDICATION: Abdominal pain. Loss of appetite. TECHNIQUE: Spiral CT of the abdomen and pelvis was performed without contrast. Axial, coronal and s agittal images of the abdomen and pelvis were reviewed. The dose-length product (DLP) for this exami nation was 314.09 mGy-cm. The exposure was tailored according to patient size (auto mA exposure cont rol), and iterative reconstruction (ASIR) was used as additional dose reduction technique. Comparison is made to prior examination from 04/13/2015. FINDINGS: The liver, spleen, adrenal glands and pancreas are unremarkable. Gallbladder not identifie d, patient likely has had cholecystectomy. There is right renal stone measuring 1.4 cm. There is a b ifid right renal pelvis. No ureteral stones suspected. There is 3.4 cm left renal cyst. The uterus i s not identified and has likely been surgically resected. The bladder is unremarkable. There is no retroperitoneal or pelvic lymphadenopathy. There is moderate scattered arteriosclerotic disease. There are no findings to suggest appendicitis. There is mild sigmoid colonic diverticulosis. There i s no adjacent inflammatory change to suggest diverticulitis. There is small sliding gastroesophageal hiatal hernia. There is expected amount of colonic stool. No free intraperitoneal gas. Patchy regions of bibasilar airspace disease, could be bacterial or viral pneumonia. There are no osteoblas tic or osteolytic lesions identified. There is left arthroplasty. L5-S1 lumbar fusion. IMPRESSION: 1. Patchy bibasilar pneumonia. 2. Large right nonobstructing nephrolithiasis. Bifid renal pelvis. 3. Mild sigmoid diverticulosis. 4. Small hiatal hernia. Reviewed, dictated and finalized at location A. [employer]
[2021-08-18 14:50] VITALS: BP 162/70; PULSE 70; RESP 18; TEMP 36.2; O2SAT 99
[2021-08-18 17:09] VITALS: BP 125/113; PULSE 110; RESP 18; TEMP 36.6; O2SAT 100
[2021-08-18 21:10] VITALS: BP 153/69; PULSE 72; RESP 16; O2SAT 97
[2021-08-18 21:47] VITALS: RESP 18; O2SAT 98
--- NOTE | 2021-08-18 22:04 | ED.GENADULT ---
HPI - General Adult General Chief complaint: Weakness Stated complaint: covid positive, weak, Time Seen by Provider: 08/18/21 21:31 Source: patient Mode of arrival: ambulatory Limitations: no limitations History of Present Illness HPI narrative: Patient is an 81-year-old female complaining of fatigue, loss of appetite, generalized weakness and abdominal discomfort when eating for the past 2 weeks after being diagnosed with Covid. Patient states that she had the IV monoclonal antibody treatment after testing positive last week. Patient also states that she is fully vaccinated from Covid. Patient denies any chest pain, shortness of breath, nausea, vomiting, diarrhea, fever or chills. Related Data Home Medications Medication Instructions Recorded Confirmed hydrocortisone 1 applic TOPICAL PRN PRN 03/03/21 08/13/21 nebivolol [Bystolic] 2.5 mg PO QAM 03/03/21 08/13/21 sennosides [Senokot] 8.6 mg PO HS 03/03/21 08/13/21 triamcinolone acetonide 1 applic TOPICAL PRN PRN 03/03/21 08/13/21 Allergies Allergy/AdvReac Type Severity Reaction Status Date / Time J CARLOS Inhibitors Allergy Mild Cough Verified 08/18/21 14:54 Review of Systems Review of Systems: All systems reviewed & are unremarkable except as noted in HPI and below Constitutional: Constitutional: Denies body ache(s), Denies chills, Denies excessive sweating, Denies fever(s), Denies headache(s), Denies malaise and Denies weight loss Eyes: Eyes: Denies blurry vision, Denies change in vision and Denies loss of vision ENT: Denies dizziness, Denies ear discharge, Denies headache(s), Denies lip swelling, Denies epistaxis, Denies nasal congestion, Denies neck pain, Denies throat swelling and Denies tongue swelling Cardiovascular: Cardiovascular: Denies chest pain, Denies chest pain at rest, Denies chest pain with activity, Denies diaphoresis, Denies rapid heart rate, Denies edema, Denies irregular heart rhythm, Denies lightheadedness, Denies palpitations, Denies dyspnea and Denies dyspnea on exertion Respiratory: Respiratory: Denies chest congestion, Denies cough, Denies hemoptysis, Denies dyspnea and Denies dyspnea on exertion Gastrointestinal: Gastrointestinal: Denies melena, Denies hematochezia, Denies diarrhea, Denies nausea, Denies vomiting and Denies hematemesis Musculoskeletal: Musculoskeletal: Denies abnormal gait, Denies deformity, Denies joint swelling, Denies limited range of motion, Denies neck pain and Denies numbness Neurologic: Denies Abnormal speech present, Denies abnormal gait, Denies confusion, Denies dizziness, Denies headache(s), Denies focal weakness, Denies loss of vision, Denies numbness, Denies Other visual disturbances, Denies Sensory deficit (Neuro) and Denies weakness Psychiatric: Psychiatric: Denies confusion, Denies depression, Denies auditory hallucinations, Denies homicidal ideation and Denies suicidal ideation Endocrine: Endocrine: Denies cold intolerance, Denies excessive sweating, Denies fatigue, Denies heat intolerance and Denies palpitations Hematologic/Lymphatic: Hematologic/Lymphatic: Denies easy bleeding and Denies easy bruising Allergic/Immunologic: Allergic/Immunologic: Denies lip swelling, Denies throat swelling and Denies tongue swelling PMFSH Past Medical History Medical History Essential (primary) hypertension Hernia Pain of left hip Surgical History Surgical History H/O repair of rotator cuff H/O: hysterectomy History of appendectomy History of cholecystectomy History of left hip replacement March 16, 2021 anterior approach History of lumbar surgery History of vitrectomy Postoperative wound infection Superficial wound infection treated effectively with serial debridement and antibiotics. Family History Family History Mother Hypertension Carcinoma of colon Col
[2021-08-18] MEDS: LACTATED RINGERS 1,000 ML 999 ML IV CONT (22:38)
[2021-08-18 22:47] LABS: Basophils Percent Auto 0.3 % (0.2-1.2); Eosinophils Absolute Auto 0.3 K/mm3 (0-0.3); Eosinophils Percent Auto 3.4 % (0-4.4); Hematocrit 34.7 % (37.0-47.0); Hemoglobin 10.9 g/dL (12.0-15.0); Immature Granulocyte Absolute 0.03 K/mm3 (0.00-0.031); Immature Granulocyte Percent A 0.4 % (0-0.5); Lymphocytes Absolute Auto 1.59 K/mm3 (0.9-3.2); Lymphocytes Percent Auto 21.1 % (18.3-44.2); Mean Corpuscular HGB Conc 31.4 g/dl (32-36); Mean Corpuscular Hemoglobin 27.8 pg (26-34); Mean Corpuscular Volume 88.5 fl (80-100); Monocytes Absolute Auto 0.8 K/mm3 (0.1-0.6); Monocytes Percent Auto 10.1 % (2.6-8.5); Neutrophils Absolute Auto 4.9 K/mm3 (1.3-6.7); Neutrophils Percent Auto 64.7 % (45.5-73.1); Platelet Count Result 254 k/mm3 (150-375); Red Blood Count 3.92 M/mm3 (4.2-5.4); Red Cell Distribution Width 14.5 % (11.5-14.5); White Blood Count 7.5 K/mm3 (4.5-10.0)
[2021-08-18 23:02] LABS: Alanine Aminotransferase 14 U/L (4-35); Albumin Level 3.9 g/dL (3.5-5.1); Alkaline Phosphatase 101 U/L (38-126); Anion Gap 7 mmol/L (8-16); Aspartate Amino Transferase 19 U/L (14-36); Blood Urea Nitrogen 12 mg/dL (7-17); Carbon Dioxide 28 mmol/L (22-30); Chloride 105 mmol/L (98-107); Estimated CRCL calculation 48 ml/min; Estimated Glomerular Filt Rate > 60; Glucose 108 mg/dL (65-110); Lipase 131 U/L (23-300); Potassium 3.1 mmol/L (3.4-5.0); Sodium 140 mmol/L (137-145)
[2021-08-19 00:23] LABS: Add Urine Microscopic? YES; Appearance Urine Cloudy (Clear); Bacteria Urine Trace /hpf; Bilirubin Urine Negative (Negative); Blood Urine 1+ (Negative); Calcium Oxalate Crystals Urine Present /hpf; Color Urine Yellow (Yellow); Glucose Urine UA Negative (Negative); Ketones Urine 1+ mg/dL (Negative); Leukocyte Esterase Ur 3+ LEU/UL (Negative); Mucus Urine Rare /lpf; Nitrate Urine Positive (Negative); Protein Urine Negative (Negative); Squamous Epithelial Cell Urine Moderate /hpf (Few); Transitional Epi Cells Urine Rare /hpf (None Seen); Urobilinogen Urine Negative mg/dL (<2.0); WBC Urine >75 /hpf
[2021-08-19 00:38] VITALS: BP 155/75; PULSE 69; RESP 18; O2SAT 98
[2021-08-19] MEDS: CEPHALEXIN 500 MG CAPSULE PO (01:28)
[2021-08-19 01:56] VITALS: BP 135/75; PULSE 78; RESP 18; O2SAT 100
== END 2021-08-19 01:57 | disposition home or self-care (01) ==
PROVIDERS: Emergency Provider Emergency Medicine; PCP Family Medicine
DX: U07.1 COVID-19 (principal); N39.0 Urinary tract infection, site not specified; J18.9 Pneumonia, unspecified organism; I10 Essential (primary) hypertension; Z96.642 Presence of left artificial hip joint; Z87.891 Personal history of nicotine dependence; N20.0 Calculus of kidney; K57.30 Diverticulosis of large intestine without perforation or abscess without bleeding; K44.9 Diaphragmatic hernia without obstruction or gangrene
CPT/HCPCS: 36415; 74176; 80053; 81001; 83690; 85025; 87086; 87088; 96360; 96361; 99284; A9270; J7120

== ENCOUNTER 2022-02-05 14:30 | Outpatient (CLI) | payer MEDICARE, OTHER, SELFPAY ==
--- NOTE | ~2022-02-05 | CT_ITS ---
EXAMINATION: CT abdomen pelvis wo con DATE: 02/05/2022 14:51 INDICATION: Right flank pain TECHNIQUE: Computed tomography (CT) of the abdomen and pelvis was performed without intravenous contr ast. The dose-length product (DLP) was 169.01 mGy-cm. Automated exposure control and iterative recons truction technique were employed. COMPARISON: 08/18/2021 FINDINGS: Minimal dependent atelectasis is present in the lung bases. The heart size is normal. There is a small sliding hiatal hernia. The gallbladder is surgically absent. The liver, spleen, pancreas, and adrenal glands are normal. There is a 12 mm stone in the right renal pelvis causing mild hydrone phrosis. There is a 3.8 cm cyst of the left kidney. No pathologically enlarged abdominal or pelvic ly mph nodes are identified. There is calcified atherosclerosis of the aorta and many of the other arter ies. There is no free intraperitoneal gas or evidence of bowel obstruction. There are changes of left total hip arthroplasty. There is moderate lumbar spondylosis. There are changes of posterior fusion at L5-S1. IMPRESSION: 1. 12 mm stone in the right renal pelvis causing mild hydronephrosis. Reviewed, dictated and finalized at location F.
== END 2022-02-05 14:31 | disposition home or self-care (01) ==
PROVIDERS: PCP Emergency Medicine; Visit Provider Family Medicine
DX: N20.1 Calculus of ureter (principal)
CPT/HCPCS: 74176

== ENCOUNTER 2022-02-10 13:13 | Outpatient (CLI) | payer MEDICARE, OTHER, SELFPAY ==
--- NOTE | ~2022-02-10 | XR_ITS ---
EXAMINATION: XR abdomen/kub 1V INDICATION: Right renal stone follow-up TECHNIQUE: Supine views of the abdomen were obtained on 2 radiographs. COMPARISON: CT, 02/05/2022 FINDINGS: A 1.3 cm stone projects in the expected location of the right renal pelvis. The bowel gas p attern is normal. The visualized lung bases are clear. There are changes of left total hip. IMPRESSION: 1. 1.3 cm stone projecting in the expected location of the right renal pelvis. Reviewed, dictated and finalized at location A.
== END 2022-02-10 13:14 | disposition home or self-care (01) ==
LOC: ANHIMG 13:23
PROVIDERS: PCP Emergency Medicine; Visit Provider Nurse Practitioner Adult Health
DX: N20.0 Calculus of kidney (principal)
CPT/HCPCS: 74018

== ENCOUNTER 2022-02-12 11:21 | Outpatient (CLI) | payer MEDICARE, OTHER, SELFPAY ==
[2022-02-12 11:54] LABS: INR 0.9; Partial Thromboplastin Time 25.2 SECONDS (22.3-36.8); Prothrombin Time 11.9 Seconds (11.1-14.7)
== END 2022-02-12 11:22 | disposition home or self-care (01) ==
LOC: ANHSURGERY 11:25
PROVIDERS: PCP Emergency Medicine; Visit Provider Urology
DX: N20.0 Calculus of kidney (principal); Z01.818 Encounter for other preprocedural examination
CPT/HCPCS: 36415; 85610; 85730; 87086

== ENCOUNTER 2022-02-19 01:22 | Day surgery (SDC) | payer MEDICARE, OTHER, SELFPAY ==
[2022-02-11 14:58] VITALS: BMI 24.0
--- NOTE | 2022-02-12 10:11 | PC.NURSE ---
Report to the Outpatient Waiting Room, entrance under the green pavilion located off [facility], at time _0630_ on date _02/19/22_. OR Time: _0830_. - You and your visitor will be asked a series of questions to screen for COVID 19 for your protection. - Only one visitor is allowed at this time. - The patient visitor is requested to leave or wait in car when not with patient. - A mask is required within the hospital. Patients may have clear liquids (water, carbonated beverages, clear teas, apple juice) until 3 hours prior to surgery (0530 AM) with a maximum of 20 ounces. - No food from midnight until time of surgery Take the following medications with a SIP of water the morning of surgery: _NEBIVOLOL_ Medications to discontinue per physician ___N/A__, Date to take last dose Please no make-up, nail turkish, hairspray, perfume, deodorant, or body powder the day of surgery. No jewelry (including any body piercings) or valuables the day of surgery, leave them at home. Please take a shower or bath the night before, or the morning of, surgery with an antibacterial soap. Wear comfortable, loose fitting clothing. - Jewelry must be removed prior to entering the operating room. Rings and piercings that are not removed may be cut off. - The hospital will not accept responsibility for valuables. - Please leave all valuables, including medications, at home the day of surgery. If you are going home after surgery, a licensed electric screw driver operator must drive you home. - NO public transportation without another adult. - We recommend that an adult stay with you for 24 hours following discharge. - We also recommend that you do not drive, make important decision, drink alcoholic beverages, or take any drugs that were not prescribed by your health care provider for at least 24 hours after your discharge time. Follow any additional instructions given to you from your surgeon. If you or anyone in your household have experienced Covid symptoms in the past week, please notify your surgeon or the nurse liaison at the phone number below for possible testing. Telephone instructions given to ___PT and asked if any additional questions and then verbalized understanding. Patient advised to call surgeon office or pre surgery nurse liaison [phone] if any additional questions.
--- NOTE | 2022-02-18 11:10 | WPDANESEPPF ---
Anes - Initial Pre Proc Eval Procedure: Operation Date: 02/19/22 08:30 Proposed Procedures p Right Extracorporeal Shock Wave Lithotripsy - Gilmer Sesay MD Date/Time: 02/18/22 11:10 Surgeon: Gilmer Sesay MD Pre Op Diagnosis: right renal stone Patient Data Age: 82 Gender: F Height: 1.57 m Weight: 59.54 kg Allergies Allergy/AdvReac Type Severity Reaction Status Date / Time J CARLOS Inhibitors Allergy Mild Cough Verified 02/19/22 07:09 Home Medications Medication Instructions Recorded Confirmed Type nebivolol 5 mg tablet (Bystolic) 2.5 mg PO QAM 03/03/21 02/19/22 History sennosides 8.6 mg tablet (Senokot) 8.6 mg PO HS 03/03/21 02/19/22 History amoxicillin 500 mg-potassium 1 tablet PO BID 02/19/22 02/19/22 History clavulanate 125 mg tablet Patient hx anesthesia problems: none Family hx anesthesia problems: none Results Review: All pre-operative results and documents have been reviewed as part of the pre-operative evaluation. [facility] Past Medical History Medical History Chronic back pain Essential (primary) hypertension Essential (primary) hypertension Hernia Pain of left hip Personal history of tobacco use Surgical History Surgical History H/O repair of rotator cuff H/O: hysterectomy History of appendectomy History of cholecystectomy History of left hip replacement March 16, 2021 anterior approach History of lumbar surgery History of vitrectomy Postoperative wound infection Superficial wound infection treated effectively with serial debridement and antibiotics. Family History Family History Mother Hypertension Carcinoma of colon Colon polyp Family history of malignant neoplasm of breast in first degree relative Father Family history of Parkinson's disease, Onset Age: 73 Social History Social History Smoking packs per day: 1 Smoking cigarettes per day: 20.0 Years smoked: 50 Smoking pack-years: 50.00 Smoking status: Former smoker Tobacco type: cigarettes Second hand tobacco smoke exposure: No Smoking end date: 08/15/12 Alcohol intake: never Substance use: never Substance use type: does not use Living arrangements: with family Spiritual care concerns: No Anes - Eval Final PreProcedure Day of Procedure 02/18/22 11:10 Patient weight: normal Heart: regular rate and rhythm Lungs: clear to auscultation and normal air movement Airway: Mallampati scale class II Neurological: alert and oriented Last oral intake: >/= 8 hours ASA classification: II Emergent: no Anesthetic plan: proceed Anesthesia type and monitoring: general LMA Results Review: All pre-operative results and documents have been reviewed as part of the pre-operative evaluation. Informed Consent: The patient's anesthetic plan and its attendant risks and benefits were discussed with the patient/family/POA. Questions were solicited and answers provided to the satisfaction of the patient/family/POA.
[2022-02-19] VITALS (7 sets, daily range): BP systolic 146–182; BP diastolic 73–90; PULSE 61–72; RESP 10–16; TEMP 36.3–36.7; O2SAT 96–100
--- NOTE | ~2022-02-19 | XR_ITS ---
EXAMINATION: XR abdomen/kub 1V INDICATION: Right renal stone TECHNIQUE: Supine view of the abdomen is obtained. COMPARISON: 02/10/2022 FINDINGS: A 1.8 cm stone projects in the expected location of the right renal pelvis. No additional u rolithiasis is identified. There are phleboliths of the pelvis. The bowel gas pattern is normal. Mccormick ges of left total hip arthroplasty are noted. 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 Surgical changes are noted at L5-S1. IMPRESSION: 1. 1.8 cm stone projecting in the expected location of the right renal pelvis. Reviewed, dictated and finalized at location B.
--- NOTE | 2022-02-19 07:23 | WPDHPUPDATE1 ---
History and Physical Update Update Date/Time: 02/19/22 07:23 History and Physical has been reviewed, including an updated exam of the patient. There are NO changes in the patient's condition. Risks, benefits, and alternatives have been discussed and questions answered. Patient agrees to proceed with procedure. Proceed with cysto, right retrograde, stent placement, right renal eswl.
[2022-02-19] MEDS: LACTATED RINGERS 1,000 ML 30 ML IV CONT (07:38)
[2022-02-19] MEDS: ceFAZolin 2 GM/D5W 50 ML 2 GM/50 ML BAG IVPB (08:36)
[2022-02-19] MEDS: LIDOCAINE HCL 2% GEL UROJET 10 ML PKG MUCOUS MEM (09:41)
--- NOTE | 2022-02-19 09:47 | W.PM.PROC2 ---
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 The ostium was somewhat narrow. We converted from a lithotripsy to a ureteroscopy with holmium laser of stone Description of Procedure Patient is taken to the operative suite correctly identified. Once anesthesia was obtained she was placed in a frog-leg position and prepped and draped usual sterile fashion. Flexible cystoscope was inserted in the bladder. There was no tumors noted. Both ureteral orifices were visualized. The right ureteral orifice was cannulated with a guidewire but it was noted that it did not appear to be in the system with a stone. We thus placed a Jenera in a did a pyelogram. It was obvious at this point that she had a duplicated system bifurcating in the proximal ureter. The lower pole system appeared to be somewhat narrow in nature. We attempted to place a guidewire into this lower pole system unsuccessfully. We thus used a mini flexible ureteral scope. Both ostium was were visualized. We were able to manipulate a wire into the lower pole system. We then passively dilated the ostium using the scope. The stone was visualized. Given the fact that I was concerned about her passing larger fragments with lithotripsy we decided to laser the stone. Using a 272 micron fiber we lasered the stone in also did a dusting of the. Fragments appeared very very small. At this point we decided to stent the patient with a 4.8 Zimbabwean contour stent with the proximal end coiled in the renal pelvis and the distal in the bladder. Bladder was drained. 2% viscous lidocaine was inserted urethra patient is taken recovery stable condition. She will follow-up in 7-10 days with a KUB. I may consider repeating a CT scan at that point prior to removing the stent to more accurately determine any fragments present. Drains Yes Packing No Pathology None sent Complications No immediate complications Condition Stable Disposition PACU
== END 2022-02-19 11:31 | disposition home or self-care (01) ==
PROVIDERS: PCP Emergency Medicine; Visit Provider Urology
PROC: (CPT 50590; principal; 2022-02-19 08:30)
DX: N20.0 Calculus of kidney (principal); I10 Essential (primary) hypertension; Z87.891 Personal history of nicotine dependence
CPT/HCPCS: 52356; 74018; A9270; C1758; C1769; C2617; J0690; J2405; J2704; J3010; J7120; Q9966

== ENCOUNTER 2022-03-02 11:44 | Outpatient (CLI) | payer MEDICARE, OTHER, SELFPAY ==
--- NOTE | ~2022-03-02 | XR_ITS ---
EXAM: XR abdomen/kub 1V DATE: 03/02/2022 12:08 HISTORY: RT RENAL STONE, STENT PLACED 1 WK AGO . COMPARISON: CT abdomen and pelvis 02/05/2022. FINDINGS: Lumbar fusion. Incompletely visualized left hip arthroplasty. Right ureteral stent in good position. Previously detected right renal pelvis stone no longer present. Normal bowel gas pattern. No organomegaly. Pelvic phleboliths. Regional bones and soft tissues normal for age. IMPRESSION: Right nephroureteral stent, in good position. No radiographic evidence of urolithiasis. Reviewed, dictated and finalized at location K. IMPRESSION: Right nephroureteral stent, in good position. No radiographic evide nce of urolithiasis.
== END 2022-03-02 11:45 | disposition home or self-care (01) ==
PROVIDERS: PCP Emergency Medicine; Visit Provider Nurse Practitioner Adult Health
DX: N20.0 Calculus of kidney (principal)
CPT/HCPCS: 74018

== ENCOUNTER 2022-06-08 12:56 | Outpatient (CLI) | payer MEDICARE, OTHER, SELFPAY ==
--- NOTE | ~2022-06-08 | US_ITS ---
US renal BI 06/08/2022 13:57 Procedure: Realtime transabdominal ultrasound of the kidneys and bladder. Indication: Renal stone Comparison: CT dated 02/05/2022 Findings: Renal echotexture is normal bilaterally without contour deforming mass. There is mild right hydronephrosis. There is a 5 mm echogenic focus in the right kidney, suspicious for nonobstructing r ight renal stone. The right kidney measures 9.9 cm and left kidney measures 10.4 cm. There is a left renal cyst measuring 2.2 cm. Bladder within normal limits. Impression: 1: Probable 5 mm right renal stone. Mild right hydronephrosis. 2: Left renal cyst measuring 2.2 cm. Reviewed, dictated and finalized at location B. Impression: 1: Probable 5 mm right renal stone. Mild right hydronephrosis. 2: Left renal cyst measuring 2.2 cm.
== END 2022-06-08 12:57 | disposition home or self-care (01) ==
LOC: ANHIMG 13:01
PROVIDERS: PCP Emergency Medicine; Visit Provider Emergency Medicine
DX: N20.0 Calculus of kidney (principal); N28.1 Cyst of kidney, acquired
CPT/HCPCS: 76775

== ENCOUNTER 2022-06-09 15:05 | Outpatient (CLI) | payer MEDICARE, OTHER, SELFPAY ==
--- NOTE | ~2022-06-09 | XR_ITS ---
XR abdomen/kub 1V DATE: 06/09/2022 15:39 INDICATION: Right hydronephrosis. Abdominal pain for 4 months. TECHNIQUE: 2 supine AP views COMPARISON: 06/09/2022 CT abdomen pelvis FINDINGS: The psoas shadows are intact. No visceromegaly is evident. No urinary tract calculus is not ed. No evidence of bowel obstruction. Osteopenia. Status post posterior surgical fusion at L5-S1. Status post left total hip arthroplasty. Levoscoliosis and degenerative change of thoracolumbar spine. IMPRESSION: Nonspecific abdomen Reviewed, dictated and finalized at Location A. Reviewed, dictated and finalized at location A. IMPRESSION: Nonspecific abdomen
--- NOTE | ~2022-06-09 | CT_ITS ---
EXAMINATION: CT abdomen pelvis wo con DATE: 06/09/2022 15:25 INDICATION: Hydronephrosis. TECHNIQUE: Computed tomography (CT) of the abdomen and pelvis was performed without intravenous contr ast. The dose-length product was 295.75 mGy-cm. Automated exposure control and iterative reconstructi on technique were employed. COMPARISON: CT dated 02/05/2022. FINDINGS: Lung bases are unremarkable. Heart size normal. 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 No lymphadenopathy. Status post cholecystectomy. Small subcentimeter hypodensities of the liver, most likely benign. Ther e are calcified granulomas of the spleen. The pancreas, adrenal glands are unremarkable. There is mil d prominence of the left renal collecting system. 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 No significant hydronephrosis. No renal stones. No lymphadenopathy. Nonobstructive bowel pattern. No free air or free fluid. There is a left total hip arthroplasty. There are surgical changes consistent with spinal fusion at L5-S1. There is grade 1 spondylolisthesis at L5-S1. IMPRESSION: 1. 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 No right renal stone. 2: Mild left renal caliectasis. No obstructing stone identified. Evaluation of the distal ureters li mited by streak artifact from hip arthroplasty. Reviewed, dictated and finalized at location B. IMPRESSION: 1. 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 No ri ght renal stone. 2: Mild left renal caliectasis. No obstructing stone identified. Evaluation of the distal ureters limited by streak artifact from hip arthroplasty.
== END 2022-06-09 15:06 | disposition home or self-care (01) ==
LOC: ANHIMG 15:07
PROVIDERS: PCP Emergency Medicine; Visit Provider Nurse Practitioner Adult Health
DX: N13.30 Unspecified hydronephrosis (principal)
CPT/HCPCS: 74018; 74176

== ENCOUNTER 2023-12-27 14:14 | Outpatient (CLI) | payer MEDICARE, SELFPAY ==
--- NOTE | ~2023-12-27 | CT_ITS ---
EXAMINATION: CT abdomen pelvis wo con DATE: 12/27/2023 14:30 INDICATION: Unspecified intestinal obstruction. Abdominal pain. TECHNIQUE: Computed tomography (CT) of the abdomen and pelvis was performed without intravenous contr ast. Automated exposure control and iterative reconstruction technique were employed. The dose-length product was 478.90 mGy-cm. COMPARISON: CT abdomen and pelvis 06/09/2022 FINDINGS: The visualized portions of the lung bases demonstrate mild atelectasis. A calcified left newton ng nodule is consistent with old granulomatous disease. Mild emphysema is noted. No pleural effusion. The heart size is normal. There are coronary artery calcifications. No pericardial effusion. There i s a 6 mm cyst in the liver. Calcifications in the spleen are consistent with old granulomatous diseas e. The gallbladder is absent. The pancreas, adrenal glands, and kidneys are normal. There is divertic ulosis of the colon without evidence of diverticulitis. There are no dilated loops of bowel. The appe ndix is not visualized. There is calcified atherosclerosis of the aorta and many of the other arterie s. There are no pathologically enlarged lymph nodes. There is no free intraperitoneal fluid. There is a total left hip arthroplasty. There are changes of posterior fusion procedure at L5-S1. There is se hong lumbar spondylosis. There are bridging endplate osteophytes at multiple levels in the spine, con sistent with diffuse idiopathic skeletal hyperostosis (DISH). IMPRESSION: 1. No bowel obstruction. Reviewed, dictated and finalized at location A. IMPRESSION: 1. No bowel obstruction.
== END 2023-12-27 14:15 ==
LOC: MICIMG 14:16
PROVIDERS: PCP Emergency Medicine; Visit Provider Emergency Medicine
DX: K56.609 Unspecified intestinal obstruction, unspecified as to partial versus complete obstruction (principal)
CPT/HCPCS: 74176

== ENCOUNTER 2024-02-02 17:01 | Emergency (ER) | payer MEDICARE, SELFPAY ==
--- NOTE | ~2024-02-02 | XR_ITS ---
EXAMINATION: XR chest 2V DATE: 02/02/2024 19:15 INDICATION: Cough TECHNIQUE: frontal and lateral views of the chest were obtained. COMPARISON: Chest radiograph dated 05/02/[address] dated 06/09/2022 FINDINGS: Small left pericardial fat pad at the lateral left lower lung zone. No other airspace opacities, pulm onary edema, pleural effusion or pneumothorax. Heart size is normal. Calcified mediastinal lymph node s consistent with old granulomatous disease. Likely biopsy marker ring at the right breast. Thoracic dextroscoliosis with bridging osteophytes at multiple levels consistent with diffuse idiopathic skele cj hyperostosis (DISH). IMPRESSION: 1. No acute cardiopulmonary disease. Reviewed, dictated and finalized at location A.
[2024-02-02 17:14] VITALS: BP 128/82; PULSE 87; RESP 20; TEMP 37.7; O2SAT 90
--- NOTE | 2024-02-02 18:41 | ECG_ITS ---
Test Date: 2024-02-02 19:23:46 Measurements Intervals [place] Rate: 80 P: 24 ME: 173 QRS: 11 QRSD: 82 T: 40 QT: 380 QTc: 439 Interpretive Statements SINUS RHYTHM MINIMAL ST DEPRESSION [0.025+ mV ST DEPRESSION] ABNORMAL ECG No previous ECG available for comparison Electronically Signed On 02-03-2024 10:51:45 CDT by Chas Solorio M.D.
--- NOTE | 2024-02-02 18:43 | ED.SOB ---
HPI - SOB/Dyspnea General Chief Complaint: Shortness of Breath/Dyspnea Stated Complaint: cough, congestion Time Seen by Provider: 02/02/24 18:21 History of Present Illness HPI Narrative: 83-year-old female with a history of hypertension, hypercholesterolemia presents to the emergency department for cough, congestion, fatigue and weakness, shortness of breath and chest tightness for 4 days. Patient states her cough has been mostly nonproductive but today has had some production. She is reporting diffuse tightness in her chest and low-grade fevers of 99?. She reports nausea but no emesis. Denies abdominal pain, dysuria or hematuria. She is endorsing some diarrhea. Related Data Home Medications Medication Instructions Recorded Confirmed faricimab-svoa 6 mg/0.05 mL 6 mg intravitreal ONCE 12/20/23 12/20/23 intravitreal solution (Vabysmo) Allergies Allergy/AdvReac Type Severity Reaction Status Date / Time J CARLOS Inhibitors Allergy Mild Cough Verified 02/02/24 17:02 Review of Systems Review of Systems: CONSTITUTIONAL: Denies fever, chills, or sweats. EYES: Denies visual changes, redness, or discharge. ENT: Denies rhinorrhea, congestion, sore throat, or otalgia. CARDIOVASCULAR: see HPI RESPIRATORY: See HPI GASTROINTESTINAL: Denies abdominal pain, nausea, vomiting, or diarrhea. GENITOURINARY: Denies dysuria or hematuria. SKIN: Denies rash or itching. MUSCULOSKELETAL: Denies back pain, joint pain, or myalgia. NEUROLOGIC: Denies headache, numbness, or weakness. PSYCHIATRIC: Denies anxiety or depression. FOR[facility], [facility] Past Medical History Medical History Chronic back pain Essential (primary) hypertension Essential (primary) hypertension Hernia Left leg weakness Pain of left hip Personal history of tobacco use Surgical History Surgical History H/O repair of rotator cuff H/O: hysterectomy History of appendectomy History of cholecystectomy History of left hip replacement March 16, 2021 anterior approach History of lumbar surgery History of vitrectomy Postoperative wound infection Superficial wound infection treated effectively with serial debridement and antibiotics. Family History Family History Mother Hypertension Carcinoma of colon Colon polyp Family history of malignant neoplasm of breast in first degree relative Father Family history of Parkinson's disease, Onset Age: 73 Social History Social History Smoking packs per day: 1 Smoking cigarettes per day: 20.0 Years smoked: 50 Smoking pack-years: 50.00 Smoking status: Former smoker Tobacco type: cigarettes Second hand tobacco smoke exposure: No Smoking end date: 08/15/12 Alcohol intake: never Substance use: never Substance use type: does not use Lack of Transportation: No Lack of Food: Never True Current Housing: I Have Housing Concerned About Future Housing: No Difficulty Paying Gas/Electric Bills: No Difficulty Paying for Meds: No Currently Unemployed: No Education: High School Diploma/GED Difficulty w/ Childcare or Family Care: No Living arrangements: with family Occupation/Education: retired Gender identity (if verbalized by the patient): Female Sexual Orientation (if Verbalized by the Patient): Straight or Heterosexual Spiritual care concerns: No Exam Narrative: GENERAL: Well-appearing, well-nourished, and in no acute distress. resting comfortably in exam bed, speaking in full sentences. HEAD: Normocephalic, atraumatic. EYES: PERRLA and EOMI. ENT: Nares clear, no rhinorrhea or epistaxis. Mucous membranes moist. NECK: Supple. CHEST: Clear to auscultation. No respiratory distress. HEART: Regular rate and rhythm. No murmur heard. Normal peripheral pulses. ABDOMEN: Soft, nontender, nondistended, normal a
[2024-02-02 19:23] VITALS: O2SAT 92
[2024-02-02 19:31] LABS: Basophils Percent Auto 0.1 % (0.2-1.2); Eosinophils Percent Auto 0.3 % (0-4.4); Hematocrit 46.5 % (37.0-47.0); Hemoglobin 14.9 g/dL (12.0-15.0); Immature Granulocyte Absolute 0.02 K/mm3 (0.00-0.031); Immature Granulocyte Percent A 0.3 % (0-0.5); Lymphocytes Absolute Auto 1.01 K/mm3 (0.9-3.2); Lymphocytes Percent Auto 14.1 % (18.3-44.2); Mean Corpuscular Hemoglobin 30.1 pg (26-34); Mean Corpuscular Volume 93.9 fl (80-100); Mean Platelet Volume 9.6 fl (7.4-10.4); Monocytes Absolute Auto 0.6 K/mm3 (0.1-0.6); Neutrophils Absolute Auto 5.5 K/mm3 (1.3-6.7); Neutrophils Percent Auto 77.2 % (45.5-73.1); Platelet Count Result 162 k/mm3 (150-375); Red Blood Count 4.95 M/mm3 (4.2-5.4); Red Cell Distribution Width 13.4 % (11.5-14.5); White Blood Count 7.1 K/mm3 (4.5-10.0)
[2024-02-02 19:43] LABS: Alanine Aminotransferase 18 U/L (6-35); Albumin Level 4.4 g/dL (3.5-5.1); Alkaline Phosphatase 94 U/L (38-126); Anion Gap 9 mmol/L (4-12); Aspartate Amino Transferase 25 U/L (14-36); Bilirubin,Total 1.1 mg/dL (0.2-1.3); Blood Urea Nitrogen 19 mg/dL (7-17); Carbon Dioxide 24 mmol/L (22-30); Chloride 107 mmol/L (98-107); Estimated CRCL calculation 39 ml/min; Estimated Glomerular Filt Rate > 60; Glucose 125 mg/dL (65-110); INR 0.9; Magnesium 2.1 mg/dL (1.6-2.3); Potassium 3.9 mmol/L (3.4-5.0); Prothrombin Time 13.1 Seconds (11.1-14.7); Sodium 140 mmol/L (137-145)
[2024-02-02 19:44] LABS: Partial Thromboplastin Time 24.1 Seconds (22.3-36.8)
[2024-02-02 19:59] LABS: NT Pro B Type Natriuretic Pept 207 pg/mL (19.9-100); Troponin I < 0.012 ng/mL (0.000-0.034)
[2024-02-02 20:00] LABS: Lactic Acid Reflex 1.7 mmol/L (0.7-2.0)
[2024-02-02 20:08] LABS: Influenza A QL RT-PCR Negative (Negative); Influenza B QL RT-PCR Negative (Negative); RSV RNA, RT-PCR Negative (Negative); SARS-CoV-2 RNA PCR Negative (Negative)
[2024-02-02 21:31] VITALS: BP 151/85; PULSE 85; RESP 22; O2SAT 93
[2024-02-02] MEDS: BENZONATATE 100 MG CAPSULE PO ×2 (21:49→23:38)
[2024-02-02 21:58] LABS: Appearance Urine Cloudy (Clear); Bacteria Urine 4+ /hpf; Bilirubin Urine Negative (Negative); Blood Urine 2+ (Negative); Color Urine Yellow (Yellow); Glucose Urine UA Negative (Negative); Ketones Urine Negative (Negative); Leukocyte Esterase Ur 2+ LEU/UL (Negative); Nitrate Urine Positive (Negative); Non Pathogenic Casts 0-2; Protein Urine 1+ mg/dL (Negative); RBC Urine 0-2 /hpf (0-2); Specific Grav Ur 1.023 (1.001-1.035); Squamous Epithelial Cell Urine Occasional /hpf (Few); WBC Urine >100 /hpf (0-3); pH Urine 5.5 (5.0-9.0)
[2024-02-02 22:04] LABS: Add Urine Microscopic? YES
[2024-02-02 22:52] VITALS: BP 150/86; PULSE 83; RESP 20; O2SAT 90
[2024-02-02 22:55] LABS: Troponin I < 0.012 ng/mL (0.000-0.034)
--- NOTE | 2024-02-02 23:01 | ECG_ITS ---
Test Date: 2024-02-02 23:04:40 Measurements Intervals [place] Rate: 77 P: 28 IN: 165 QRS: 29 QRSD: 90 T: 50 QT: 370 QTc: 420 Interpretive Statements SINUS RHYTHM MINIMAL ST DEPRESSION [0.025+ mV ST DEPRESSION] ABNORMAL ECG Compared to ECG 02/02/2024 19:23:46 No significant changes Electronically Signed On 02-03-2024 10:55:31 CDT by Chas Solorio M.D.
[2024-02-02] MEDS: CEFDINIR 300 MG CAPSULE PO (23:38)
== END 2024-02-02 23:41 | disposition home or self-care (01) ==
PROVIDERS: Emergency Provider Physician Assistant; PCP Emergency Medicine
DX: J40 Bronchitis, not specified as acute or chronic (principal); R82.998 Other abnormal findings in urine; Z20.822 Contact with and (suspected) exposure to COVID-19; I10 Essential (primary) hypertension; E78.00 Pure hypercholesterolemia, unspecified; Z96.642 Presence of left artificial hip joint; Z87.891 Personal history of nicotine dependence; Z90.710 Acquired absence of both cervix and uterus; Z90.49 Acquired absence of other specified parts of digestive tract
CPT/HCPCS: 36415; 71046; 80053; 81001; 83605; 83735; 83880; 84484; 85025; 85610; 85730; 87077; 87086; 87088; 87186; 87637; 93005; 99284; A9270

== ENCOUNTER 2025-04-06 12:30 | Emergency (ER) | payer MEDICARE, SELFPAY ==
[2025-04-06 12:42] VITALS: BP 181/85; PULSE 76; RESP 20; TEMP 36.7; O2SAT 94
--- NOTE | 2025-04-06 12:58 | ED.SKABFB ---
HPI - Skin/Abscess/Foreign Bdy General Chief complaint: Skin/Abscess/Foreign Body Stated complaint: stung by bees Time Seen by Provider: 04/06/25 12:43 Source: patient, family () and RN notes reviewed Mode of arrival: ambulatory Limitations: no limitations History of Present Illness HPI narrative: Patient presents today complaining of severe generalized itching after being stung several times by bees approximately 45 minutes prior to arrival. Stings to the bilateral arms and hands, right lateral thigh, bilateral ankles, and scalp. No OTC treatment prior to arrival. Patient denies shortness of breath, facial or mouth swelling, but does report some dryness in her throat. States when she has had bee stings in the past she has had localized swelling, but has never had facial or mouth swelling. Related Data Home Medications ?Medication ?Instructions ?Recorded ?Confirmed ?Last Taken ?Type sennosides 8.6 mg tablet (Senokot) 8.6 mg PO QHS 06/12/24 12/12/24 Unknown History faricimab-svoa 6 mg/0.05 mL 6 mg intravitreal ONCE 12/12/24 12/12/24 Unknown History intravitreal solution (Vabysmo) Allergies Allergy/AdvReac Type Severity Reaction Status Date / Time J CARLOS Inhibitors Allergy Mild Cough Verified 04/06/25 12:36 PMF Past Medical History Medical History Left leg weakness Pain of left hip Hernia Chronic back pain Personal history of tobacco use Essential (primary) hypertension Essential (primary) hypertension Surgical History Surgical History Postoperative wound infection Superficial wound infection treated effectively with serial debridement and antibiotics. History of left hip replacement March 16, 2021 anterior approach History of vitrectomy H/O repair of rotator cuff H/O: hysterectomy History of cholecystectomy History of appendectomy History of lumbar surgery Family History Family History Mother Hypertension Carcinoma of colon Colon polyp Family history of malignant neoplasm of breast in first degree relative Father Family history of Parkinson's disease, Onset Age: 73 Social History Social History Smoking packs per day: 1 Smoking cigarettes per day: 20.0 Years smoked: 50 Smoking pack-years: 50.00 Smoking status: Former smoker Tobacco type: cigarettes Second hand tobacco smoke exposure: No Smoking end date: 08/15/12 Alcohol intake: never Substance use: never Substance use type: does not use Lack of Transportation: No Lack of Food: Never True Current Housing: I Have Housing Concerned About Future Housing: No Difficulty Paying Gas/Electric Bills: No Difficulty Paying for Meds: No Currently Unemployed: No Education: High School Diploma/GED Difficulty w/ Childcare or Family Care: No Living arrangements: with family Occupation/Education: retired Gender identity (if verbalized by the patient): Female Sexual Orientation (if Verbalized by the Patient): Straight or Heterosexual Spiritual care concerns: No Comments At time of signature, I have reviewed and agree with nursing past medical, surgical, social and family history unless otherwise noted. Please see nursing chart for further information. There is no relevant family history pertinent to the presenting complaint Exam Narrative: GENERAL: Well-appearing, well-nourished, and in no acute distress. HEAD: Normocephalic, atraumatic. EYES: EOMI. No redness or drainage. Conjunctivae normal. ENT: Mucous membranes pink and moist. Nares clear. No rhinorrhea. Throat normal. Uvula midline. NECK: Normal AROM. Supple. No lymphadenopathy. CHEST: No respiratory distress. Clear to auscultation. HEART: Regular rate and rhythm. No murmur appreciated. Normal peripheral pulses. EXTREMITIES: Normal range of motion. No edema. SKIN: Warm, dry, no rash. Capillary refill normal. Normal skin turgor. Multiple stings to the hands and forearms. Hands are mildly erythematous and swollen. Few small stings to the bilateral ankles noted NEURO: No focal deficits. Alert and oriented x3. Gait steady. PSYCH: Normal affect. No signs of depression or anxiety. Course Course Emergency Course: IM of Benadryl, dexamethasone, and p.o. Pepcid administered by RN. 1330- Patient states she is feeling better. Itching has resolved. Bites are painful now. Denies shortness of breath or difficulty swallowing. 1346-Patient continues to feel better. Ready for discharge. Level of Care: Express Care Visit Vital Signs Vital signs: Vital Signs Temperature 98.1 F 04/06/25 12:42 Pulse Rate 76 04/06/25 12:42 Respiratory Rate 20 04/06/25 12:42 Blood Pressure 181/85 H 04/06/25 12:42 Pulse Oximetry 94 04/06/25 12:42 Oxygen Delivery Room Air 04/06/25 12:42 Temperature 98.1 F 04/06/25 12:42 Pulse Rate 76 04/06/25 12:42 Respiratory Rate 20 04/06/25 12:42 Blood Pressure 181/85 H 04/06/25 12:42 Pulse Oximetry 94 04/06/25 12:42 Oxygen Delivery Room Air 04/06/25 12:42 Reviewed MDM - Skin/Abscess/Foreign Bdy MDM Narrative Medical decision making narrative: 85-year-old female patient presents today after being stung multiple times by bees outside her home approximately 45 minutes prior to arrival. She is complaining of generalized itching and a dry throat, but no difficulty swallowing or shortness of breath. No OTC treatment prior to arrival. She does have history of allergic reaction to bee stings in the past but no anaphylaxis. Upon exam, patient has multiple erythematous nodules consistent with bee stings to the bilateral arms, hands, ankles. IM Benadryl and Decadron given as well as p.o. Pepcid. After almost an hour of observation, patient no longer has a generalized itching, only localized itching. She continues to have no shortness of breath or difficulty swallowing. No facial swelling noted. Discussed prescription for prednisone as well as continuing a daily antihistamine such as Zyrtec and taking Tylenol for discomfort. Patient agrees with plan. Vital signs stable. Anticipatory guidance given. Differential Diagnosis Differential diagnosis: Likely other (Insect stings, allergic reaction, anaphylaxis) Critical Care Time Critical Care Time Critical Care Time: No Discharge Plan Discharge Clinical Impression: Allergic reaction to insect sting Patient Disposition: Home Condition: Stable Instructions: Insect Bite or Sting (ED) Additional Instructions: You have been given a dose of steroids, Benadryl, and Pepcid to help with your insect stings today. A prescription for prednisone has been sent to the pharmacy. Please start this tomorrow morning and take as directed. You should also start a daily antihistamine such as Zyrtec, Claritin, or Liliam to help with your itching. Tylenol for pain if needed. If you develop any shortness of breath, difficulty swallowing, or facial swelling, please go to the ER immediately for further evaluation. Your blood pressure was elevated above 120/80 today at Urgent Care. This puts you above the threshold for follow up. Please schedule a followup visit with your personal physician as soon as possible, for further evaluation and treatment. Even blood pressure exceeding 120/80 may indicate pre-hypertension. Patient Language: Armenian Prescriptions: New prednisone 20 mg tablet 40 mg PO DAILY 5 Days Qty: 10 0RF No Action sennosides [Senokot] 8.6 mg tablet 8.6 mg PO QHS Vabysmo 6 mg/0.05 mL solution 6 mg intravitreal ONCE albuterol sulfate 90 mcg/actuation HFA aerosol inhaler 1 inh inhalation QID PRN (Reason: shortness of breath or wheezing) Qty: 6.7 0RF triamcinolone acetonide 0.1 % cream 1 applic topical BID Qty: 80 2RF Airsupra 90-80 mcg/actuation HFA aerosol inhaler 2 inh inhalation ONCE Qty: 5.9 2RF Rx Instructions: as a single dose; may repeat up to 6 doses per day (12 inhalations) nebivolol 2.5 mg tablet See Rx Instructions .ROUTE .COMPLEX Qty: 180 3RF Dose Instruction: TAKE 1 TABLET BY MOUTH TWICE DAILY Rx Instructions: TAKE 1 TABLET BY MOUTH TWICE DAILY ropinirole 0.25 mg tablet 0.25 mg PO QHS Qty: 90 0RF (DME) Custom orthotic See Rx Instructions .Route .MEDSUPPLY Qty: 1 0RF Rx Instructions: use daily. oxycodone-acetaminophen 5-325 mg tablet 1 tablet PO QHS PRN (Reason: pain) Qty: 30 0RF Follow-up/Referrals: Krysten Jacobsen FNP-C [Primary Care Provider, Family Practice] Time of Disposition: 13:53
[2025-04-06] MEDS: dexAMETHasone SOD PHOS INJ 10 MG/ML 1 ML VIAL IM (13:03)
[2025-04-06] MEDS: FAMOTIDINE 20 MG TABLET PO (13:04)
[2025-04-06 14:09] VITALS: BP 169/95; PULSE 63; RESP 20; TEMP 36.6; O2SAT 99
== END 2025-04-06 14:09 | disposition home or self-care (01) ==
PROVIDERS: Emergency Provider Nurse Practitioner; PCP Nurse Practitioner Family
DX: T63.461A Toxic effect of venom of wasps, accidental (unintentional), initial encounter (principal); I10 Essential (primary) hypertension; Z96.642 Presence of left artificial hip joint; Z87.891 Personal history of nicotine dependence
CPT/HCPCS: 96372; 99214; A9270; G0463; J1100; J1200